=== PATIENT | male | born 1950 | race Caucasian/White ===

== ENCOUNTER 2021-02-05 15:01 | Inpatient (IN) | payer MEDICARE, MEDICAID, SELFPAY ==
[2021-02-05] VITALS (70 sets, daily range): BP systolic 83–143; BP diastolic 30–84; PULSE 48–108; RESP 10–32; TEMP 36.4–36.6; O2SAT 87–100; BMI 44.1
--- NOTE | 2021-02-05 15:47 | XRR_ITS ---
PROCEDURE INFORMATION: Exam: XR Chest Exam date and time: 02/05/2021 3:53 PM Age: 71 years old Clinical indication: Shortness of breath; Additional info: SOB TECHNIQUE: Imaging protocol: XR of the chest Views: 1 view. Total images: 1 COMPARISON: No relevant prior studies available. FINDINGS: Lungs: Minimal discoid atelectasis right lung base. Pleural spaces: Small right pleural effusion. Heart/Mediastinum: Unremarkable. No cardiomegaly. Bones/joints: Unremarkable. Soft tissues: Heavy body habitus. XR/XR chest 1V portable [id number] IMPRESSION: 1. Small right pleural effusion. 2. Minimal discoid atelectasis right lung base.
--- NOTE | 2021-02-05 15:47 | CTR_ITS ---
PROCEDURE INFORMATION: Exam: CT Abdomen And Pelvis Without Contrast Exam date and time: 02/05/2021 5:48 PM Age: 71 years old Clinical indication: Bloating; Patient HX: Rapid weight gain; Additional info: Abdominal distension TECHNIQUE: Imaging protocol: Computed tomography of the abdomen and pelvis without contrast. Total images: 281 Radiation optimization: All CT scans at this facility use at least one of these dose optimization techniques: automated exposure control; mA and/or kV adjustment per patient size (includes targeted exams where dose is matched to clinical indication); or iterative reconstruction. COMPARISON: No relevant prior studies available. RADIATION DOSE METRICS: Total DLP (mGy-cm): 1928.3 FINDINGS: Lungs: Rare bullous/bleb within the visualized lung bases. Calcified granulomas of antecedent disease. Pleural spaces: Small volume bilateral pleural effusions. Liver: Cirrhosis of the liver. No visible hepatic mass or cystic lesion. Gallbladder and bile ducts: Unremarkable. No calcified stones. No ductal dilation. Pancreas: Pancreas unremarkable. No visible pancreatic ductal ectasia. Spleen: Splenomegaly. Adrenal glands: Adrenal glands unremarkable. Kidneys and ureters: No visible hydronephrosis or perinephric fluid. Renal arteriosclerosis. Stomach and bowel: Diverticulosis coli without visible evidence for acute diverticulitis. Nonobstructive bowel pattern. No visible significant adynamic or reactive ileus. Appendix: The appendix is visualized and appears noninflamed. Intraperitoneal space: Small volume intraperitoneal ascites. No visible pneumoperitoneum. Vasculature: Coronary artery disease. Calcified mitral annulus. Evidence of portal venous hypertension. The abdominal aorta is nonaneurysmal. Moderate arterial sclerotic disease. Lymph nodes: Unremarkable. No enlarged lymph nodes. Urinary bladder: Urinary bladder unremarkable. Reproductive: Moderate prostate hypertrophy. Bones/joints: Old right rib fractures. No visible active or acute osseous abnormality. Degenerative disease of the spine with degenerative disc disease most advanced L3/4 and L4/L5 with vacuum disc phenomenon. Facet arthrosis. Mild scoliosis. Soft tissues: Anasarca. Bilateral small inguinal hernias containing fat only. Other findings: Marked obesity. CT/CT abdomen pelvis wo con [id number] IMPRESSION: 1. Cirrhosis of the liver. 2. Small volume intraperitoneal ascites. 3. Splenomegaly. 4. Evidence of portal venous hypertension. 5. Small bilateral pleural effusions. 6. Diverticulosis coli without visible evidence for acute diverticulitis. 7. Coronary artery disease. 8. Anasarca. 9. Other nonurgent, nonemergent, chronic, and age related findings as detailed in text above. Radiation Dose CTDIVOL = (mGy): DLP = 1928.3 (mGy-cm)
[2021-02-05] MEDS: sodium chloride 0.9% 1,000 ML 999 ML IV (16:04)
[2021-02-05 17:00] LABS: Basophils % 0.4 %; Eosinophils % 1.6 %; Hematocrit 24.4 % (42.0-52.0); Hemoglobin 7.2 g/dL (11.7-16.6); Mean Corpuscular HGB Conc 29.5 g/dL (30.0-36.0); Mean Corpuscular Hemoglobin 30.6 pg (28.0-34.0); Mean Corpuscular Volume 103.8 fL (80-94); Monocytes # 0.3 10^3/uL (0.2-0.9); Monocytes % 13.7 %; Neutrophils # 1.11 10^3/uL (1.8-7.7); Neutrophils % 44.5 %; Nucleated Red Blood Cells % 0 %; Red Blood Count 2.35 10^6/uL (4.1-5.3); Red Cell Distribution Width 19.2 % (12.1-15.1); White Blood Count 2.5 10^3/uL (4.0-10.0)
[2021-02-05 17:12] LABS: INR 1.38 (0.8-1.2)
[2021-02-05 17:14] LABS: Lactate (Lactic Acid level) 1.1 mmol/L (0.5-2.2)
[2021-02-05 17:19] LABS: Alanine Aminotransferase 8 U/L (0-41); Albumin Level 3.2 g/dL (3.5-5.2); Alkaline Phosphatase 36 IU/L (40-130); Anion Gap 19.1 (5-19); Aspartate Amino Transferase 18 U/L (0-40); Calcium 8.7 mg/dL (8.5-10.5); Carbon Dioxide 23 mmol/L (22-29); Chloride 106 mmol/L (98-107); Creatine Phosphokinase 130 U/L (39-308); Globulin 2.8 g/dL (1.3-4.6); Glucose 101 mg/dL (65-115); Lipase 134 U/L (13-60); NT Pro B Type Natriuretic Pept 1714 pg/mL (0-125); Potassium 6.1 mmol/L (3.5-5.1); Sodium 142 mmol/L (136-145); Total Bilirubin 0.5 mg/dL (0.15-1.2)
[2021-02-05 17:21] LABS: Platelet Count 34 10^3/cmm (130-400); Slide Review Slide Review Perform
[2021-02-05 17:30] LABS: Blood Urea Nitrogen 118 mg/dL (8-23); Osmolality Calculated 332 mOsm/kg (285-295)
--- NOTE | 2021-02-05 18:45 | XRR_ITS ---
PROCEDURE INFORMATION: Exam: XR Chest Exam date and time: 02/05/2021 6:47 PM Age: 71 years old Clinical indication: Device placement; Other: Central line; Additional info: Central line placement TECHNIQUE: Imaging protocol: XR of the chest Views: 1 view. Total images: 1 COMPARISON: CR XR chest 1V portable [id number] 02/05/2021 4:05 PM FINDINGS: Tubes, catheters and devices: Interval placement of a right internal jugular central venous catheter tip mid SVC level. Lungs: Suboptimal examination. Lung bases not imaged. Interval development of bibasilar ground-glass interstitial lung disease, right greater than left, which could reflect interstitial pneumonitis and/or interstitial edema. Pleural spaces: No visible pneumothorax. Heart/Mediastinum: Limited assessment. Bones/joints: Unremarkable as visualized. Other findings: Obesity. XR/XR chest 1V portable [id number] IMPRESSION: 1. Interval placement of a right internal jugular central venous catheter tip mid SVC level. No radiographic evidence of complicating features. 2. Limited diagnostic examination.
--- NOTE | 2021-02-05 20:12 | P.HP_ITS ---
Providers/Chief Complaint Primary Care Provider: Corey Lopez DO Chief Complaint: WEIGHT GAIN History of Present Illness Fabiano Young is a 71 year old male who came to the hospital for chief complaint of generalized weakness. Patient is stating that for last few weeks he has been feeling more tired and lethargic, he is endorsing previous history of EGD and colonoscopy and history of alcohol induced liver cirrhosis. He is not a re liable historian. There is no family at the bedside. Mr. Young is telling me that he was struggling to live independently, he is endorsing constipation, drinking alcohol on daily basis, he did not provide me much detail when asked about his alcohol intake however he told me that he did not drink today. He is endorsing constipation and inability to clean himself after using bathroom. He is denying chest pain, insomnia, PND, fever, sinus infection. Is also stating that for last few weeks he has been noticing dark-colored stools. Diagnosis in the ER revealed hypotension, anemia, melanotic stools, he was saturating well on room air was requiring vasopressor in the ER which improved his blood pressure from 70 systolic to 110 mmHg, Dr. Glasgow was notified and consulted however he was also notified about portal hypertension which we found on CT chest which is evident due to splenomegaly, ascites, liver contour, pancytopenia, bilateral pleural effusion, anasarca In the ER he was given 1 unit of PRBC along IV calcium Review of Systems Const: Reports: fatigue and malaise; Denies: fever(s) Eyes: Reports: yellow eyes; Denies: change in vision ENMT: Denies: throat pain Card: Reports: dyspnea on exertion; Denies: chest pain Resp: Reports: dyspnea GI: Reports: constipation, bloating and GI cramping; Denies: nausea, vomiting or diarrhea : Denies: flank pain Musc: Reports: muscle cramps Skin/Breast: Reports: lesions; Denies: rash Neuro: Reports: confusion Psych: Reports: sleeping more Endo: Denies: polyuria Amadou/Lymph: Denies: easy bruising All/Imm: Denies: urticaria PFSH Acute PFSH: Medical History (Updated 02/06/21 @ 00:56 by Nick Mcbride MD) Alcohol abuse Diabetes Portal hypertension Surgical History (Updated 02/06/21 @ 00:56 by Nick Mcbride MD) H/O esophagogastroduodenoscopy Hx of colonoscopy Family History (Updated 02/06/21 @ 00:56 by Nick Mcbride MD) Other Family history non-contributory Social History (Updated 02/06/21 @ 00:57 by Nick Mcbride MD) Smoking and tobacco status: heavy tobacco smoker cigarettes Packs smoked per day: 20 [ Other cigarette details: 1 pack/day ] Alcohol intake: current Substance/Drug Use: never Housing: House Vitals/I&O/Wt Last Vital Signs Temp 97.6 F 02/05/21 20:06 Pulse 50 L 02/05/21 20:06 Resp 14 02/05/21 20:06 BP 114/56 02/05/21 20:06 Pulse Ox 98 02/05/21 19:46 02/05/21 02/05/21 02/05/21 06:59 14:59 22:59 Intake Total 1010.300 / 1010.300 Balance 1010.300 / 1010.300 Weight last 48 hrs Weight 147.599 kg Physical Exam Narrative: EXAM NARRATIVE: Morbidly obese male who appears more than stated age He was able to tell me his date of , name of the hospital, no acute strokelike symptoms Generalized anasarca appearance S1, S2, no murmur appreciated Abdomen distended, central obesity nontender, bowel sounds present in all quadrants Lower extremity venous stasis dermatitis Multiple laceration of right leg He is able to lift his leg against gravity without any difficulty Acharya catheter draining concentrated urine Asterixis positive Saturating well on room air At the bedside blood transfusion and calcium gluconate Data : 02/05/21 16:30 02/05/21 16:30 A&P Assessment and plan (1) Hypovolemic shock: Status: Acute (2) Pancytopenia: Status: Acute (3) Melanotic stools: Status: Acute (4) JILLIAN (acute kidney injury): Status: Acute Additional A&P Information Hypovolemic shock with melanotic stool/upper GI bleed Generalized anasarca. Portal hypertension with splenomegaly and ascites Requiring vasopressors if needed I would add octreotide however current blood pressure is better systolic blood pressure 110 mmhg N.p.o. Protonix 40 IV twice daily He will need EGD in the morning Dr. Glasgow consulted and notified about portal hypertension he agreed for end oscopy Transfuse 1 unit For liver cirrhosis I will start ceftriaxone lactulose and rifaximin he does show signs of decompensated liver cirrhosis Pancytopenia This seems secondary to alcohol induced bone marrow suppression No active signs of infection Hold off on DVT prophylaxis Requiring blood transfusion Acute kidney injury due to hypotension Hyperkalemia 6.1, received calcium gluconate in the ER His baseline creatinine seems to be normal No hydronephrosis Generalized anasarca appearance Not sure whether at this point this is a presentation of hepatorenal syndrome Avoid nephrotoxic agents Acharya catheter draining concentrated urine N.p.o. DVT prophylaxis SCDs Full code Patient was very drowsy and has asterixis with hepatic encephalopathy kindly readdress his medical and surgical history along his medications in the morning once he is more awake Attestations Medical Necessity Statement*: Anticipating stay in the hospital cross more than 2 midnights for hypovolemic shock secondary to upper GI bleed currently requiring vasopressors Time Spent in Patient Care: (>than 50% of time spent in counselling and/or direct pt care on unit) . 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
[2021-02-05 20:20] LABS: Add Urine Microscopic? YES; Bilirubin Urine Neg (Negative); Blood Urine Trace (Negative); Glucose Urine UA Norm (Normal); Ketones Urine Negative (Negative); Leukocyte Esterase Urine Trace (Negative); Nitrate Urine Negative (Negative); Protein Urine Trace (Negative); Urine Appearance SL Hazy (CLEAR); Urine Color Yellow (Yellow); Urobilinogen Urine Norm (Negative); pH Urine 5 (5-7)
[2021-02-05 20:26] LABS: Add Urine Culture? Yes; Bacteria Urine 1+ /hpf; RBC Urine 0-4 /hpf (0-2); Squamous Epithelial Cell Urine 0-4 /hpf (0-5); WBC Urine 40-55 /hpf (0-5)
[2021-02-05] MEDS: pantoprazole 40 mg SDV IVP (22:13)
[2021-02-05 23:39] LABS: Ammonia 23 umol/L (16-60)
[2021-02-06] VITALS (106 sets, daily range): BP systolic 77–186; BP diastolic 36–158; PULSE 51–102; RESP 9–32; TEMP 36.5–37; O2SAT 86–100
--- NOTE | 2021-02-06 00:52 | W.ED.GIBLEED ---
HPI - GI Bleed General: Chief complaint: GI Bleed Stated complaint: WEIGHT GAIN Time Seen by Provider: 02/05/21 15:26 Source: patient Mode of arrival: ambulatory History of Present Illness: HPI Narrative: Patient is a poor historian and is unable to give me a thorough history. He presents to the ED with complaints of abdominal distension, bloating, and has generalized weakness. He states he has a history of GI bleed and prior EGD and possible gastric ulcer. He thinks that's what is going on again and he thinks that he needs an EGD. He denies bloody stools or melena stools, but thinks his abdominal distension is secondary to bleeding. Onset (ago): week(s) Severity: moderate Relieving factors: none Exacerbating factors: none Context: history of GI bleed Associated symptoms: Reports malaise; Denies abdominal pain, chills, easy bruising, epistaxis, fever(s), headache(s), nausea, other bleeding, poor appetite, rash, syncope, vomiting or weakness Treatments Prior to Arrival: none Review of Systems General: Reports: 10 or more systems reviewed and unremarkable except in HPI and below Const: Reports: malaise; Denies: fever(s) or chills ENMT: Denies: epistaxis Card: Denies: syncope GI: Denies: abdominal pain, nausea or vomiting Skin/Breast: Denies: rash Neuro: Denies: headache(s) Amadou/Lymph: Denies: easy bruising PFS ED PFSH: Medical History Alcohol abuse Diabetes Portal hypertension Surgical History H/O esophagogastroduodenoscopy Hx of colonoscopy Family History Other Family history non-contributory Social History Smoking and tobacco status: heavy tobacco smoker cigarettes Packs smoked per day: 20 [ Other cigarette details: 1 pack/day ] Alcohol intake: current Housing: House Physical Exam Const: COMMON NORMALS: no acute distress, average body habitus, patient oriented x3, no limitations, healthy appearing, alert and well nourished HENMT: COMMON NORMALS: normocephalic, atraumatic and moist oral mucous membranes HEAD & SCALP: normocephalic and atraumatic Neck/C-Spine: COMMON NORMALS: no meningeal signs and no JVD Resp: COMMON NORMALS: normal respiratory effort, No retractions, No use of accessory muscles, clear to auscultation bilaterally and percussion normal AUSCULTATION: clear to auscultation bilaterally PERCUSSION: percussion normal Cardio: COMMON NORMALS: no JVD, regular rhythm, S1 normal heart sound present, S2 normal heart sound present, No gallops present (Cardio), No clicks present (Cardio), No murmurs present (Cardio), No rub (Cardio) and Peripheral pulses 2+ throughout RATE: bradycardic RHYTHM: regular rhythm HEART SOUNDS: S1 normal heart sound present and S2 normal heart sound present PERIPHERAL PULSES: Peripheral pulses 2+ throughout GI: COMMON NORMALS: Soft to palpation, non-tender, No hepatosplenomegaly present, no masses and no bruits INSPECTION: Yes abdominal distension (mild) PALPATION: Yes Soft to palpation and Yes No hepatosplenomegaly present RECTAL EXAM: Yes visual inspection normal, Yes normal sphincter tone, Yes prostate normal, Yes heme positive stool and No hemorrhoids Extremity: COMMON NORMALS: normal to inspection, full ROM, capillary refill normal and no calf tenderness GENERAL: Yes edema Neuro: COMMON NORMALS: patient oriented x3 SENSORIUM/ORIENTATION: Yes alert MENINGEAL SIGNS: Yes no meningeal signs Skin: COMMON NORMALS: no rashes or lesions noted, no wounds, turgor normal, no jaundice, no petechiae and no mottling GENERAL SKIN EXAM: no rashes or lesions noted and turgor normal Procedures Central Line Placement Right IJ: Time Out Performed: Yes Patient Placed on Monitor/Pulse Ox: Yes MD Prep: mask, gown and gloves Central Line Prep: Chlorhexidine scrub Local Anesthetic: lidocaine 1% Amount of anesthesia used (mL): 3 Ultrasound Used for Placement: Yes Central Line Lumen Inserted: triple Post Procedure: sutured in place, good blood return, all ports aspirated, flushed, capped and sterile dressing applied Post Procedure X-Ray: tip of catheter in good position and no pneumothorax seen Patient Tolerated Procedure: well Complications: none Course Reevaluation(s): Reevaluation #1: Discussed his labs and imaging findings with him. Also discussed my discussion with the hospitalist and surgeon. Advised that he will benefit from inpatient admission for further evaluation and management. He voiced understanding and all questions answered. Time: 20:10 Consultations: Consultation #1: Discussed the patient with Dr. Glasgow, general surgeon. He kindly agreed to see the patient in the hospital as a consult. Hospitalist to admit the patient. Time: 19:57 Consultation #2: Discussed the patient with Dr. Mcbride, hospitalist and he kindly accepted the patient to his service. Time: 20:05 Vital Signs: Vital signs: Vital Signs Temperature 97.4 F L 02/13/21 17:34 Pulse Rate 84 02/13/21 17:34 Respiratory Rate 17 02/13/21 17:34 Blood Pressure 144/65 02/13/21 17:34 Pulse Oximetry 94 02/13/21 17:34 MDM - GI Bleed MDM Narrative: Medical decision making narrative: This 71 year old male presents to the ED with concerns of GI bleed. Evaluation in the ED revealed pancytopenia, heme positive stool, and he became hypotensive. He was also in acute renal failure, uremic encephalopathy, and is quite ill. He is transfused with PRBC because of anemia and hypotension. He also required pressors to maintain his BP. A central line was placed because he required fluids, pressors, blood. He is admitted to the ICU for further management. The surgeon, Dr Glasgow and he was evaluate the patient in the hospital. Medical Records: Attestation: I reviewed the patient's medical records. Lab Data: Attestation: I reviewed the patient's lab results. Labs: Lab Results 02/05/21 02/05/21 02/05/21 Range/Units 16:30 16:30 16:30 WBC 2.5 L (4.0-10.0) 10^3/ uL RBC 2.35 L (4.1-5.3) 10^6/u L Hgb 7.2 L (11.7-16.6) g/dL Hct 24.4 L (42.0-52.0) % MCV 103.8 H (80-94) fL MCH 30.6 (28.0-34.0) pg MCHC 29.5 L (30.0-36.0) g/dL RDW 19.2 H (12.1-15.1) % Plt Count 34 L (130-400) 10^3/c mm MPV 15.0 H (7.4-10.4) fL Neut % (Auto) 44.5 % Lymph % (Auto) 39.0 % [place] % (Auto) 13.7 % Eos % (Auto) 1.6 % Baso % (Auto) 0.4 % Neut # (Auto) 1.11 L (1.8-7.7) 10^3/u L Lymph # (Auto) 1.0 (0.8-4.8) 10^3/u L [place] # (Auto) 0.3 (0.2-0.9) 10^3/u L Eos # (Auto) 0.0 (0.0-0.8) 10^3/u L Baso # (Auto) 0.0 (0.0-0.1) 10^3/u L Nucleated RBC % (a uto) 0 % Nucleated RBCs # 0.0 /100WBC PT 17.50 H (12.1-14.9) SECO NDS INR 1.38 H (0.8-1.2) Sodium 142 (136-145) mmol/L Potassium 6.1 H (3.5-5.1) mmol/L Chloride 106 (98-107) mmol/L Carbon Dioxide 23 (22-29) mmol/L Anion Gap 19.1 H (5-19) BUN 118 H* (8-23) mg/dL Creatinine 5.7 H* (0.7-1.2) mg/dL GFR Calculation Not Reportable Glucose 101 (65-115) mg/dL Calculated Osmolal ity 332 H (285-295) mOsm/k g Lactate (0.5-2.2) mmol/L Calcium 8.7 (8.5-10.5) mg/dL Total Bilirubin 0.5 (0.15-1.2) mg/dL AST 18 (0-40) U/L ALT 8 (0-41) U/L Alkaline Phosphata se 36 L (40-130) IU/L Creatine Kinase 130 (39-308) U/L NT-Pro-B Natriuret Pep 1714 H (0-125) pg/mL Total Protein 6.0 L (6.6-8.7) g/dL Albumin 3.2 L (3.5-5.2) g/dL Globulin 2.8 (1.3-4.6) g/dL Lipase 134 H (13-60) U/L Urine Color (Yellow) Urine Appearance (CLEAR) Urine pH (5-7) Ur Specific Gravit y (1.005-1.030) Urine Protein (Negative) Urine Glucose (UA) (Normal) Urine Ketones (Negative) Urine Blood (Negative) Urine Nitrate (Negative) Urine Bilirubin (Negative) Urine Urobilinogen (Negative) mg/dL Ur Leukocyte Susanna ase (Negative) Urine RBC (0-2) /hpf Urine WBC (0-5) /hpf Ur Squamous Epith Cells (0-5) /hpf Amorphous Sediment Urine Bacteria (NONE) /hpf Hyaline Casts /lpf Blood Type Rho(D) Type Antibody Screen Crossmatch 02/05/21 02/05/21 02/05/21 Range/Units 16:30 16:30 20:13 WBC (4.0-10.0) 10^3/ uL RBC (4.1-5.3) 10^6/u L Hgb (11.7-16.6) g/dL Hct (42.0-52.0) % MCV (80-94) fL MCH (28.0-34.0) pg MCHC (30.0-36.0) g/dL RDW (12.1-15.1) % Plt Count (130-400) 10^3/c mm MPV (7.4-10.4) fL Neut % (Auto) % Lymph % (Auto) % [place] % (Auto) % Eos % (Auto) % Baso % (Auto) % Neut # (Auto) (1.8-7.7) 10^3/u L Lymph # (Auto) (0.8-4.8) 10^3/u L [place] # (Auto) (0.2-0.9) 10^3/u L Eos # (Auto) (0.0-0.8) 10^3/u L Baso # (Auto) (0.0-0.1) 10^3/u L Nucleated RBC % (a uto) % Nucleated RBCs # /100WBC PT (12.1-14.9) SECO NDS INR (0.8-1.2) Sodium (136-145) mmol/L Potassium (3.5-5.1) mmol/L Chloride (98-107) mmol/L Carbon Dioxide (22-29) mmol/L Anion Gap (5-19) BUN (8-23) mg/dL Creatinine (0.7-1.2) mg/dL GFR Calculation Glucose (65-115) mg/dL Calculated Osmolal ity (285-295) mOsm/k g Lactate 1.1 (0.5-2.2) mmol/L Calcium (8.5-10.5) mg/dL Total Bilirubin (0.15-1.2) mg/dL AST (0-40) U/L ALT (0-41) U/L Alkaline Phosphata se (40-130) IU/L Creatine Kinase (39-308) U/L NT-Pro-B Natriuret Pep (0-125) pg/mL Total Protein (6.6-8.7) g/dL Albumin (3.5-5.2) g/dL Globulin (1.3-4.6) g/dL Lipase (13-60) U/L Urine Color Yellow (Yellow) Urine Appearance Sl hazy (CLEAR) Urine pH 5 (5-7) Ur Specific Gravit y 1.020 (1.005-1.030) Urine Protein Trace (Negative) Urine Glucose (UA) Norm (Normal) Urine Ketones Negative (Negative) Urine Blood Trace H (Negative) Urine Nitrate Negative (Negative) Urine Bilirubin Neg (Negative) Urine Urobilinogen Norm (Negative) mg/dL Ur Leukocyte Susanna ase Trace H (Negative) Urine RBC 0-4 H (0-2) /hpf Urine WBC 40-55 H (0-5) /hpf Ur Squamous Epith Cells 0-4 H (0-5) /hpf Amorphous Sediment Not Reportable Urine Bacteria 1+ H (NONE) /hpf Hyaline Casts 5-10 H /lpf Blood Type B Positive Rho(D) Type Positive / 4+ Antibody Screen Negative Crossmatch See Detail Imaging Data^: CT Abd/Pel: Attestation: I personally reviewed and interpreted this imaging study as follows: Radiologist's impression: [address] [place] [address] CT Scan Report Signed Patient: Daisy Young #: [id number] : 1950Acct#:[id number] Age/Sex: 71 / MADM Date: 02/05/21 Loc: ERRoom/Bed: Attending Dr: Ordering Provider/Ordering MD: Bre Wilkerson MD, CHRISTOPHER Date of Service: 02/05/21 Procedure(s): CT abdomen pelvis [facility] [address] Accession Number(s): [id number] Report Number: [id number] PROCEDURE INFORMATION: Exam: CT Abdomen And Pelvis Without Contrast Exam date and time: 02/05/2021 5:48 PM Age: 71 years old Clinical indication: Bloating; Patient HX: Rapid weight gain; Additional info: Abdominal distension TECHNIQUE: Imaging protocol: Computed tomography of the abdomen and pelvis without contrast. Total images: 281 Radiation optimization: All CT scans at this facility use at least one of these dose optimization techniques: automated exposure control; mA and/or kV adjustment per patient size (includes targeted exams where dose is matched to clinical indication); or iterative reconstruction. COMPARISON: No relevant prior studies available. RADIATION DOSE METRICS: Total DLP (mGy-cm): 1928.3 FINDINGS: Lungs: Rare bullous/bleb within the visualized lung bases. Calcified granulomas of antecedent disease. Pleural spaces: Small volume bilateral pleural effusions. Liver: Cirrhosis of the liver. No visible hepatic mass or cystic lesion. Gallbladder and bile ducts: Unremarkable. No calcified stones. No ductal dilation. Pancreas: Pancreas unremarkable. No visible pancreatic ductal ectasia. Spleen: Splenomegaly. Adrenal glands: Adrenal glands unremarkable. Kidneys and ureters: No visible hydronephrosis or perinephric fluid. Renal arteriosclerosis. Stomach and bowel: Diverticulosis coli without visible evidence for acute diverticulitis. Nonobstructive bowel pattern. No visible significant adynamic or reactive ileus. Appendix: The appendix is visualized and appears noninflamed. Intraperitoneal space: Small volume intraperitoneal ascites. No visible pneumoperitoneum. Vasculature: Coronary artery disease. Calcified mitral annulus. Evidence of portal venous hypertension. The abdominal aorta is nonaneurysmal. Moderate arterial sclerotic disease. Lymph nodes: Unremarkable. No enlarged lymph nodes. Urinary bladder: Urinary bladder unremarkable. Reproductive: Moderate prostate hypertrophy. Bones/joints: Old right rib fractures. No visible active or acute osseous abnormality. Degenerative disease of the spine with degenerative disc disease most advanced L3/4 and L4/L5 with vacuum disc phenomenon. Facet arthrosis. Mild scoliosis. Soft tissues: Anasarca. Bilateral small inguinal hernias containing fat only. Other findings: Marked obesity. CT/CT abdomen pelvis wo con [id number] IMPRESSION: 1. Cirrhosis of the liver. 2. Small volume intraperitoneal ascites. 3. Splenomegaly. 4. Evidence of portal venous hypertension. 5. Small bilateral pleural effusions. 6. Diverticulosis coli without visible evidence for acute diverticulitis. 7. Coronary artery disease. 8. Anasarca. 9. Other nonurgent, nonemergent, chronic, and age related findings as detailed in text above. Radiation Dose CTDIVOL = (mGy): DLP = 1928.3 (mGy-cm) Dictated By:Khari Burnett Signed By:Nasim Burnett Date/Time:02/05/211826 DD/ 24 CXR: Attestation: I personally reviewed and interpreted this imaging study as follows: Radiologist's impression: [facility] [address] XRay Report Signed Patient: Daisy Young #: [id number] : 1950Acct#:[id number] Age/Sex: 71 / MADM Date: 02/05/21 Loc: ICURoom/Bed: [place] [address]: Nick Mcbride MD Ordering Provider/Ordering MD: Bre Wilkerson [place], [facility] [place] of Service: 02/05/21 Procedure(s): XR chest 1V portable [id number] Accession Number(s): [id number] Report Number: [id number] PROCEDURE INFORMATION: Exam: XR Chest Exam date and time: 02/05/2021 6:47 PM Age: 71 years old Clinical indication: Device placement; Other: Central line; Additional info: Central line placement TECHNIQUE: Imaging protocol: XR of the chest Views: 1 view. Total images: 1 COMPARISON: CR XR chest 1V portable [id number] 02/05/2021 4:05 PM FINDINGS: Tubes, catheters and devices: Interval placement of a right internal jugular central venous catheter tip mid SVC level. Lungs: Suboptimal examination. Lung bases not imaged. Interval development of bibasilar ground-glass interstitial lung disease, right greater than left, which could reflect interstitial pneumonitis and/or interstitial edema. Pleural spaces: No visible pneumothorax. Heart/Mediastinum: Limited assessment. Bones/joints: Unremarkable as visualized. Other findings: Obesity. XR/XR chest 1V portable [id number] IMPRESSION: 1. Interval placement of a right internal jugular central venous catheter tip mid SVC level. No radiographic evidence of complicating features. 2. Limited diagnostic examination. Dictated By:Khari Burnett Signed By:Khari BurnettSignjulienne Date/Time:02/05/21 6384 EKG Data^: EKG 1: Attestation: I personally reviewed and interpreted this EKG as follows: EKG interpretation date: 02/05/21 EKG interpretation time: 15:31 Prior EKG tracings: not available for review Interpretation: sinus bradycardia HR 49 bpm LAD No STEMI Critical Care Time Critical Care Time: Critical Care Time: Yes Total Critical Care Time: 60 Attestation: This case had a high probability of a clinically significant, sudden, or life threatening deterioration of this patient's condition which required my full and direct attention, intervention and personal management. Discharge Plan Discharge Patient Disposition: Admitted As Inpatient Admit Provider: Nick Mcbride Clinical Impression: Pancytopenia, JILLIAN (acute kidney injury), History of alcohol abuse, Melena Condition: Stable Discharge Diet: Cardiac Discharge Activity: Resume usual activity Coding Level of Care Code ED Appliance Adjuster for Jc Alaniz
[2021-02-06] MEDS: cefTRIAXone 1,000 MG in sodium chloride 0.9% (plus) 50 ML 100 MG IV (01:58)
[2021-02-06] MEDS: dextrose 5%-sod chloride 0.45% 1,000 ML 75 ML IV ×2 (01:58→15:47)
[2021-02-06 05:34] LABS: Basophils % 0.6 %; Eosinophils # 0.1 10^3/uL (0.0-0.8); Eosinophils % 1.3 %; Hematocrit 31.3 % (42.0-52.0); Hemoglobin 9.9 g/dL (11.7-16.6); Lymphocytes # 1.4 10^3/uL (0.8-4.8); Lymphocytes % 28.8 %; Mean Corpuscular HGB Conc 31.6 g/dL (30.0-36.0); Mean Corpuscular Hemoglobin 30.9 pg (28.0-34.0); Mean Corpuscular Volume 97.8 fL (80-94); Mean Platelet Volume 13.8 fL (7.4-10.4); Monocytes # 0.7 10^3/uL (0.2-0.9); Monocytes % 14.6 %; Neutrophils % 54.3 %; Nucleated Red Blood Cells % 0 %; Platelet Count 45 10^3/cmm (130-400); Red Cell Distribution Width 17.8 % (12.1-15.1); White Blood Count 4.8 10^3/uL (4.0-10.0)
[2021-02-06 05:57] LABS: Anion Gap 18.5 (5-19); Calcium 9.3 mg/dL (8.5-10.5); Carbon Dioxide 23 mmol/L (22-29); Chloride 106 mmol/L (98-107); Glucose 132 mg/dL (65-115); Osmolality Calculated 329 mOsm/kg (285-295); Potassium 5.5 mmol/L (3.5-5.1); Sodium 142 mmol/L (136-145)
[2021-02-06 05:58] LABS: Blood Urea Nitrogen 105 mg/dL (8-23)
[2021-02-06 06:06] LABS: Slide Review Slide Review Perform
--- NOTE | 2021-02-06 07:20 | PC.NURSE ---
This AM patient is resting in bed and is alert and oriented x 4 but rambles about unrelated topics. 2+ pitting edema is noted to lower extremities. Patient has no complaints of pain but stated he wants catheter out.
[2021-02-06] MEDS: lactulose oral liq 20 gm/30 mL UDC 30 GM PO ×2 (08:23→15:46)
[2021-02-06] MEDS: pantoprazole 40 mg SDV IV ×2 (08:23→22:01)
[2021-02-06 11:11] LABS: Hemoglobin 9.5 g/dL (11.7-16.6)
--- NOTE | 2021-02-06 12:10 | PC.CHAP ---
Pastoral Care Encounter/Spiritual Assessment Type of Contact [] Declined disabilities services officer visit [] Patient/Family/Request visit [] Outpatient visit [] Follow-up visit [] Physician referral [] Code/Alert [x] Routine visit [] Staff referral [] Actively dying [] Patient sleeping [] Family support [] [] Out of room [] Palliative care [] [] Receiving care in room [] Pre-surgical visit [] Trauma [] Long length of stay [x] ICU visit [] Other: Relational/Emotional Strength [] Patient feels connected with others/family/visitors/staff [] Distress [] Loneliness/isolation [] Abandonment Spirituality of Patient [] Person of Celina [] Attends Mandaen of their Celina [] Believes in Prayer [] Reads Bible or Pentecostalism materials [] There are Spiritual issues to be addressed Rehabilitation Aide/Scheduler Interventions [x] Prayer [x] Active listening [x] Non-anxious presence [x] Spiritual/emotional support [] Crisis/trauma care [] Spiritual counseling [] Bereavement support [] Provided bereavement packet [] Provided Bible/devotional materials [] Provided toy/stuffed animal, coloring book to patient or family member [] Provided Communion [] Anointing/[place] [] Salvation [x] Completed spiritual assessment [] Other: Impact on Illness or Injury [] Angry [] Fearful [] Anxious [] Often cries [] Exhaustion [] Unable to work [] Unable to attend tenriism [] Unable to walk/stand [] Unable to read [] Unable to drive [] Unable to eat/drink [] Unable to sleep [] Unable to be with family [] Patient intubated [] Other: Summary discuss celina with patient... patient note sure how he feels, or his issues.... Time spent with patient 10 min
[2021-02-06] MEDS: magnesium citrate Btl 296 mL PO (13:24)
--- NOTE | 2021-02-06 16:00 | PC.NURSE ---
Dr. Glasgow told this nurse to hold all bowel regimen medications at this time.
[2021-02-06 17:17] LABS: Hematocrit 31.9 % (42.0-52.0); Hemoglobin 9.8 g/dL (11.7-16.6)
--- NOTE | 2021-02-06 17:19 | XRR_ITS ---
PROCEDURE INFORMATION: Exam: XR Chest Exam date and time: 02/06/2021 5:24 PM Age: 71 years old Clinical indication: Device placement; Other: Central line; Additional info: Line placement TECHNIQUE: Imaging protocol: XR of the chest Views: 1 view. Total images: 1 COMPARISON: CR XR chest 1V portable [id number] 02/05/2021 7:28 PM FINDINGS: Tubes, catheters and devices: Right internal jugular central venous catheter tip mid superior vena cava level. EKG leads. Lungs: Subtle ground-glass interstitial lung disease right lung base which could reflect active interstitial pneumonitis and/or interstitial edema. Pleural spaces: Incomplete visualization of the left costal phrenic angle. No visible pneumothorax. Potential small right pleural effusion. Heart/Mediastinum: Cardiac structures and configuration stable. Bones/joints: Unremarkable. XR/XR chest 1V portable [id number] IMPRESSION: 1. Right internal jugular central venous catheter tip mid superior vena cava level. 2. Subtle ground-glass interstitial lung disease right lung base.
[2021-02-06 17:40] LABS: Alanine Aminotransferase 8 U/L (0-41); Albumin Level 3.4 g/dL (3.5-5.2); Alkaline Phosphatase 36 IU/L (40-130); Anion Gap 15.1 (5-19); Aspartate Amino Transferase 22 U/L (0-40); Calcium 9.4 mg/dL (8.5-10.5); Carbon Dioxide 24 mmol/L (22-29); Chloride 108 mmol/L (98-107); Globulin 3.3 g/dL (1.3-4.6); Glucose 149 mg/dL (65-115); Osmolality Calculated 330 mOsm/kg (285-295); Potassium 5.1 mmol/L (3.5-5.1); Sodium 142 mmol/L (136-145); Total Bilirubin 0.6 mg/dL (0.15-1.2); Total Protein 6.7 g/dL (6.6-8.7)
[2021-02-06 17:43] LABS: Blood Urea Nitrogen 106 mg/dL (8-23)
--- NOTE | 2021-02-06 18:18 | PC.NURSE ---
Patient attempted to stand up from chair and iv tubing was caught on bed and pulled both stitches out of central line. This nurse removed dressing and checked line. Central line was noted at 14 cm and was redressed. Dr. Chavez was notified. Stat chest xray was done to verify placement.
--- NOTE | 2021-02-06 18:27 | PC.NURSE ---
Patient has become more lethargic this afternoon but still remains alert and orientated x4. Dr. castro
--- NOTE | 2021-02-06 18:44 | PC.NURSE ---
Addendum entered by Amparo Osuna RN 02/06/21 19:08: Dr. Chavez is aware Original Note: Patient is resting in bed and is alert and oriented x 0.
--- NOTE | 2021-02-06 18:48 | CTR_ITS ---
PROCEDURE INFORMATION: Exam: CT Head Without Contrast Exam date and time: 02/06/2021 7:43 PM Age: 71 years old Clinical indication: Altered mental status/memory loss; Confusion or disorientation; Patient HX: AMS. Confusion. TECHNIQUE: Imaging protocol: Computed tomography of the head without contrast. Total images: 207 Radiation optimization: All CT scans at this facility use at least one of these dose optimization techniques: automated exposure control; mA and/or kV adjustment per patient size (includes targeted exams where dose is matched to clinical indication); or iterative reconstruction. COMPARISON: No relevant prior studies available. RADIATION DOSE METRICS: Total DLP (mGy-cm): 981.32 FINDINGS: Brain: No evidence of active or acute intracranial pathologic process, hemorrhage, or trauma. Mild small vessel ischemic disease with senile periventricular leukomalacia. No mass effect. No midline shift. Cerebral and cerebral atrophy not inconsistent with the patient's chronological age. Cerebral ventricles: No ventriculomegaly. Bones/joints: Unremarkable. No acute fracture. Paranasal sinuses: Visualized sinuses are unremarkable. No fluid levels. Mastoid air cells: Visualized mastoid air cells are well aerated. Soft tissues: Unremarkable. CT/CT head wo con* [id number] IMPRESSION: No evidence of active or acute intracranial pathologic process, hemorrhage, or trauma. Radiation Dose CTDIVOL = (mGy): DLP = 981.32 (mGy-cm)
[2021-02-06 19:32] LABS: Ammonia 23 umol/L (16-60)
--- NOTE | 2021-02-06 19:58 | P.CONIM_ITS ---
Providers/Reason For Consult Consulting Physican/Specialty*: Todd Chavez Reason for Consult*: GI bleed Attending Physician: Todd Chavez Primary Care Provider: Corey Lopez DO History of Present Illness History of Present Illness Patient appears a bit confused, information obtained from patient's chart. Fabiano Young is a 71 year old male who presented to the ER with generalized weakness. Patient apparently used to drink alcohol daily. In the ER a CT abdomen pelvis showed cirrhosis with portal hypertension and no other pathology. Patient is admitted to the ICU since he was hypotensive and received blood transfusion. Today he does not appear to be in distress, denies any nausea, vomiting, abdominal pain. He states that he has fresh blood in his stools. He is not sure when he had his last colonoscopy. Meds/Allergies Home Medications and Allergies Home Medications Medication Instructions Recorded Confirmed Last Taken Type acetaminophen [Tylenol Extra 500 mg PO QID PRN 02/06/21 02/06/21 Unknown History Strength] allopurinol 100 mg PO BID 02/06/21 02/06/21 Unknown History aspirin 325 mg PO DAILY 02/06/21 02/06/21 Unknown History atenolol-chlorthalidone 1 tab PO BID 02/06/21 02/06/21 Unknown History atorvastatin 80 mg PO DAILY 02/06/21 02/06/21 Unknown History colesevelam [WelChol] 3.75 g PO DAILY 02/06/21 02/06/21 Unknown History famotidine 20 mg PO BID 02/06/21 02/06/21 Unknown History fenofibrate nanocrystallized 145 mg PO DAILY 02/06/21 02/06/21 Unknown History furosemide 80 mg PO DAILY 02/06/21 02/06/21 Unknown History isosorbide mononitrate 30 mg PO DAILY 02/06/21 02/06/21 Unknown History lisinopril 10 mg PO DAILY 02/06/21 02/06/21 Unknown History nitroglycerin 0.4 mg SUBLINGUAL Q5MIN PRN 02/06/21 02/06/21 Unknown History pioglitazone 45 mg PO DAILY 02/06/21 02/06/21 Unknown History pregabalin 75 mg PO QID 02/06/21 02/06/21 Unknown History tamsulosin 0.4 mg PO DAILY 02/06/21 02/06/21 Unknown History Allergies Allergy/AdvReac Type Severity Reaction Status Date / Time No Known Allergies Allergy Verified 02/06/21 19:09 Current Medications Current Medications Generic Name Dose Route Start Last Admin Trade Name Homero PRN Reason Stop Dose Admin Norepinephrine Bitartrate 4 mg 254 mls @ 0 mls/hr 02/05/21 18:00 02/06/21 17:30 / Dextrose IV 0 mcg/min .Q0M FAISAL 0 mls/hr Titration Protocol Per Protocol Dextrose/Sodium Chloride 1,000 mls @ 75 mls/hr 02/06/21 01:15 02/06/21 15:47 Dextrose 5%-Sod Chloride 0.45% IV 75 mls/hr .[id number] FAISAL Administration Ceftriaxone Sodium 1,000 mg/ 50 mls @ 100 mls/hr 02/06/21 01:15 02/06/21 02:30 Sodium Chloride IV Infused Q24H FAISAL Infusion Protocol Lactulose 30 gm 02/06/21 09:00 02/06/21 15:46 Lactulose Oral Liq 20 Gm/30 Ml Udc PO 30 gm TID FAISAL Administration Magnesium Citrate 296 ml 02/06/21 12:00 02/06/21 13:24 Magnesium Citrate Btl 296 Ml PO 02/06/21 20:01 296 ml 1200,2000 FAISAL Administration Pantoprazole Sodium 40 mg 02/06/21 08:00 02/06/21 08:23 Pantoprazole 40 Mg Sdv IV 40 mg Q12H FAISAL Administration Rifaximin 550 mg 02/06/21 09:00 02/06/21 18:51 Rifaximin 550 Mg Tablet PO Not Given BID FAISAL Protocol PFSH Acute PFSH: Medical History Alcohol abuse Diabetes Portal hypertension Surgical History H/O esophagogastroduodenoscopy Hx of colonoscopy Family History Other Family history non-contributory Social History Smoking and tobacco status: heavy tobacco smoker cigarettes Packs smoked per day: 20 [ Other cigarette details: 1 pack/day ] Alcohol intake: current Substance/Drug Use: never Housing: House Vitals/I&O/Wt Last Vital Signs Temp 98.0 F 02/06/21 14:15 Pulse 60 02/06/21 18:00 Resp 11 L 02/06/21 17:00 BP 110/69 02/06/21 18:00 Pulse Ox 96 02/06/21 18:00 02/06/21 02/06/21 02/06/21 06:59 14:59 22:59 Intake Total 359.420 / 1878.145 54.51 / 3763.099 6262.873 / 1073.383 Output Total 2500 / 2500 950 / 1650 700 / 1650 Balance -2140.580 / -621.855 -895.49 / -576.617 318.873 / -576.617 Weight last 48 hrs Weight 325 lb 6.4 oz Physical Exam Narrative: EXAM NARRATIVE: HEENT: Normocephalic Eye: Sclera /conjunctiva normal Abdomen: Soft to palpation Neurological: Oriented to place person and time Skin: Intact, no lesions appreciated on gross exam Urinary Catheter Management^: Acharya: Cath Placed During This Visit: yes Reason for Continuing Indwelling Catheter: Accurate Measurement of Urinary Output in Critically Ill Patients Urinary Catheter Date of Insertion: 02/05/21 Urinary Catheter Time of Insertion: 22:31 A&P Assessment and plan (1) Melanotic stools: 71-year-old male with a history of alcohol consumption in the past who now presents with confusion. CT abdomen and pelvis showed acute kidney injury, elevated BUN and a hemoglobin of 7.2. Initially had planned for EGD and colonoscopy but patient has been borderline hypotensive requiring intermittent pressors. We will therefore just consider the EGD tomorrow under MAC. Continue lactulose for hepatic encephalopathy N.p.o. 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
--- NOTE | 2021-02-06 20:49 | P.PN_ITS ---
Subjective Subjective: Interval history: This morning lethargic/confused, later on awake, alert, oriented x3, going off on tangents, but provides good amount of history. Denies abdominal pain. Denies being dizzy/lightheaded. Vitals/I&O/Wt Last Vital Signs Temp 98.0 F 02/06/21 14:15 Pulse 59 L 02/06/21 20:10 Resp 16 02/06/21 20:10 BP 110/69 02/06/21 18:00 Pulse Ox 97 02/06/21 20:10 02/06/21 02/06/21 02/06/21 06:59 14:59 22:59 Intake Total 359.420 / 1878.145 54.51 / 54.51 1018.873 / 1073.383 Output Total 2500 / 2500 950 / 950 700 / 1650 Balance -2140.580 / -621.855 -895.49 / -895.49 318.873 / -576.617 Weight last 48 hrs Weight 147.599 kg Physical Exam Const: COMMON NORMALS: no acute distress and patient oriented x3 NUTRITIONAL APPEARANCE: obese OTHER: Lethargic during the morning. Alert du ring my visit. Later again lethargic. HENMT: COMMON NORMALS: oropharynx normal Neck/C-Spine: COMMON NORMALS: no JVD Resp: COMMON NORMALS: normal respiratory effort and clear to auscultation bilaterally AUSCULTATION: clear to auscultation bilaterally Cardio: COMMON NORMALS: no JVD, regular rhythm, S1 normal heart sound present, S2 normal heart sound present and No murmurs present (Cardio) RHYTHM: regular rhythm HEART SOUNDS: S1 normal heart sound present and S2 normal heart sound present GI: COMMON NORMALS: Normal to inspection, nondistended, normoactive bowel sounds present, Soft to palpation and non-tender PALPATION: Yes Soft to palpation Extremity: COMMON NORMALS: no joint enlargement and no pedal edema Neuro: COMMON NORMALS: patient oriented x3 and moves all extremities Skin: COMMON NORMALS: no rashes or lesions noted GENERAL SKIN EXAM: no rashes or lesions noted Urinary Catheter Management^: Acharya: Cath Placed During This Visit: yes Reason for Continuing Indwelling Catheter: Accurate Measurement of Urinary Output in Critically Ill Patients Urinary Catheter Date of Insertion: 02/05/21 Urinary Catheter Time of Insertion: 22:31 Data : 02/06/21 17:10 02/06/21 17:10 A&P Assessment and plan (1) Acute encephalopathy: Confused this morning, awake, alert, with fairly good insight, able to provide some other history during my visit. Subsequently again lethargic during the day. Encephalopathy possibly multifactorial. Requesting for ammonia repeat given a pparent cirrhosis. GI bleed. History of alcohol intake. Possible withdrawal considered, although for now would hold off on benzodiazepines. Also requested ABG to assess for hypercapnia given obesity. Discussed with nursing staff in case of hypercapnia may require BiPAP support. Hold Lyrica at this time due to renal failure. Requested CT head. Continue supportive care in the ICU. Status: Acute (2) Hypovolemic shock: Continue IV fluid rehydration. Monitor for fluid overload. Pressor support to maintain blood pressure over 65 mmHg. During fall central line was pulled on. Repeat chest x-ray requested. Status: Acute (3) Pancytopenia: Improving. Monitor. Status: Acute (4) Melanotic stools: Appreciate surgery assessment. Monitor hemoglobin. Status: Acute (5) JILLIAN (acute kidney injury): Improving. Monitor renal function, I&O. Fluid challenge. Maintain blood pressures. Hold lisinopril. Hold diuretic. Status: Acute Attestations Medical Necessity Statement*: Continue admission for assessment management of acute encephalopathy, acute anemia, hypotension, kidney injury, possible medication adverse effect, in setting of alcohol use, pancytopenia, morbid obesity. Coding Level of Care Code Acute Private Advisor for [facility] Diagnoses Acute encephalopathy G93.40 Hypovolemic shock R57.1 Pancytopenia D61.818 Melanotic stools K92.1 JILLIAN (acute kidney injury) N17.9
[2021-02-06 21:45] LABS: ABG PCO2 44.4 mmHg (35-45); ABG PH Result 7.36 (7.35-7.45)
[2021-02-06 21:46] LABS: Base Excess ABG -0.9 mmol/L (-2.0-2.0); Blood Gas Allen Test POS; Blood Gas Operator Identificat JB; HCO3 ABG 24.8 mmol/L (22-26); Oxygen Saturation ABG 91.9; PO2 ABG 62.4 mmHg (80.0-100.0); Potassium Level - ABG 5.1 mmol/L (3.5-5.0)
[2021-02-06 21:47] LABS: Alveolar-Arterial Oxygen Gradi 31.1 mmHg (5-10); Arterial Blood Gas Hematocrit 35.7 % (42-52); Blood Gas Drawn By GLC; Blood Gas Sample Type ARTERIAL; Oxygen Device ROOM AIR
[2021-02-06 21:48] LABS: Carboxyhemoglobin 1.8 %THgb (0.4-20.1); HGB O2 Sat 89.5 % (95-100); Ionized Calcium Level - ABG 1.3 mmol/L (1.1-1.4); Methemoglobin 0.8 % (0.4-1.5); Total Hemoglobin 11.6 g/dL (14-18)
[2021-02-07] VITALS (69 sets, daily range): BP systolic 92–160; BP diastolic 34–95; PULSE 55–95; RESP 11–39; TEMP 36.4–37; O2SAT 92–100
[2021-02-07] MEDS: cefTRIAXone 1,000 MG in sodium chloride 0.9% (plus) 50 ML 100 MG IV (01:09)
[2021-02-07 04:43] LABS: Basophils % 0.6 %; Eosinophils % 0.6 %; Hematocrit 29.8 % (42.0-52.0); Hemoglobin 9.4 g/dL (11.7-16.6); Lymphocytes # 0.9 10^3/uL (0.8-4.8); Mean Corpuscular HGB Conc 31.5 g/dL (30.0-36.0); Mean Corpuscular Hemoglobin 31.2 pg (28.0-34.0); Mean Platelet Volume 14.4 fL (7.4-10.4); Monocytes # 0.5 10^3/uL (0.2-0.9); Monocytes % 15.3 %; Neutrophils # 1.91 10^3/uL (1.8-7.7); Neutrophils % 57.2 %; Nucleated Red Blood Cells % 0 %; Platelet Count 35 10^3/cmm (130-400); Red Blood Count 3.01 10^6/uL (4.1-5.3); Red Cell Distribution Width 18.8 % (12.1-15.1); White Blood Count 3.3 10^3/uL (4.0-10.0)
[2021-02-07 04:56] LABS: Slide Review Slide Review Perform
[2021-02-07 05:02] LABS: Ammonia 18 umol/L (16-60)
[2021-02-07 05:03] LABS: Alanine Aminotransferase 9 U/L (0-41); Albumin Level 3.4 g/dL (3.5-5.2); Alkaline Phosphatase 36 IU/L (40-130); Aspartate Amino Transferase 21 U/L (0-40); Calcium 9.1 mg/dL (8.5-10.5); Carbon Dioxide 25 mmol/L (22-29); Chloride 111 mmol/L (98-107); Globulin 3.2 g/dL (1.3-4.6); Glucose 118 mg/dL (65-115); Osmolality Calculated 332 mOsm/kg (285-295); Sodium 146 mmol/L (136-145); Total Bilirubin 0.5 mg/dL (0.15-1.2); Total Protein 6.6 g/dL (6.6-8.7)
[2021-02-07 05:08] LABS: Blood Urea Nitrogen 94 mg/dL (8-23)
--- NOTE | 2021-02-07 09:07 | P.PN_ITS ---
Subjective Subjective: Interval history: This morning he is confused, demanding for SED to be taken off immediately. Feels that it is squeezing his leg. Also wants right IJ central line taken out, states does not want to choke on it . Discussed with him the purpose of both, although I am not sure that he was listening. Asks also about his Acharya catheter, asking how was it connected , discussed with him the purpose, and that it is draining into a bag, he again asks but how is it connected . Discussed with him regarding hypotension and shock, he was requiring monitoring in the intensive care unit. Discussed regarding GI bleeding. Again not sure that he was listening. He appeared to disregard what was said, stating he was in shock because he was not eating. He seems to remember the the year is 2020 and that he is at [facility]. However, asking him if he remembers why he is here and how he ended up here, states that he felt he was coming here to have arrangements made to go to a different place to live. Discussed with him again regarding underlying conditions. He asked whether his sister had asked for him to be in the hospital. States that he needs to be in the [facility], so is in the right place, but that there is an empty room trying to come in . Asking him if he has been having any trouble with his memory recently, firmly states no. Currently denies pain or discomfort. Denies chest or abdominal pain. Vitals/I&O/Wt Last Vital Signs Temp 98.6 F 02/07/21 01:00 Pulse 88 02/07/21 08:15 Resp 23 H 02/07/21 08:15 BP 124/79 02/07/21 08:15 Pulse Ox 96 02/07/21 08:15 02/06/21 02/07/21 02/07/21 22:59 06:59 14:59 Intake Total 1018.873 / 1073.383 50 / 1123.383 Output Total 700 / 1650 1450 / 3100 Balance 318.873 / -576.617 -1400 / -1976.617 Weight last 48 hrs Weight 144.741 kg Weight 147.599 kg Physical Exam Const: COMMON NORMALS: no acute distress NUTRITIONAL APPEARANCE: obese ORIENTATION/CONSCIOUSNESS: Yes awake and Yes confused HENMT: COMMON NORMALS: oropharynx normal Neck/C-Spine: COMMON NORMALS: no JVD Resp: COMMON NORMALS: normal respiratory effort and clear to auscultation bilaterally AUSCULTATION: clear to auscultation bilaterally Cardio: COMMON NORMALS: no JVD, regular rhythm, S1 normal heart sound present, S2 normal heart sound present and No murmurs present (Cardio) RHYTHM: regular rhythm HEART SOUNDS: S1 normal heart sound present and S2 normal heart sound present GI: COMMON NORMALS: Normal to inspection, nondistended, normoactive bowel sounds present, Soft to palpation and non-tender PALPATION: Yes Soft to palpation Extremity: COMMON NORMALS: no joint enlargement and no pedal edema Neuro: COMMON NORMALS: moves all extremities Skin: COMMON NORMALS: no rashes or lesions noted GENERAL SKIN EXAM: no rashes or lesions noted Urinary Catheter Management^: Acharya: Cath Placed During This Visit: yes Reason for Continuing Indwelling Catheter: Accurate Measurement of Urinary Output in Critically Ill Patients Urinary Catheter Date of Insertion: 02/05/21 Urinary Catheter Time of Insertion: 22:31 Data : 02/07/21 04:14 02/07/21 04:14 Micro: Microbiology 02/05/21 20:13 Urine Culture - Final Urine,Clean Catch A&P Assessment and plan (1) Acute encephalopathy: This morning he is awake. Overnight episodes of decreased responsiveness, altered alertness, mentation. He appears to be oriented x3, however, has very poor insight into his condition at this time. Appears he may be developing alcohol withdrawal. We will add monitoring by [facility] protocol. Thiamine, folic acid. Multivitamin. Continue monitoring in ICU. Plan was to take out central line, however, it appears he had taken out his IV, currently does not have other access. If other access can be obtained, central line can be taken out. If starts being more confused, take out the Acharya catheter. Repeated ammonia yesterday and this morning, does not appear elevated. He is not significantly hypercapnic. No signs of acute infection or sepsis. He is not severely neutropenic. Hold Lyrica at this time due to renal failure. Unremarkable CT head. Continue supportive care in the ICU. Could not reach his sister for update. Left a message. Status: Acute (2) Hypovolemic shock: GI bleeding, acute anemia. Hemorrhagic shock on presentation. Yesterday hypotensive again, poor, weaned off Levophed currently. Refused echocardiography this morning. Is also refusing SCDs. Acharya in place for accurate I&O, but may have to remove if getting more confused. Continue IV fluid rehydration. Monitor for fluid overload. Pressor support to maintain blood pressure over 65 mmHg. During fall central line was pulled on. Repeat chest x-ray requested. Status: Acute (3) Pancytopenia: Monitor. Platelet count down somewhat today to 35,000. Monitor platelet and hemoglobin levels. Absolute neutrophil count 1900 Status: Acute (4) Melanotic stools: Monitor condition, if remains stable, plan has been for additional discomfort assessment. Status: Acute (5) JILLIAN (acute kidney injury): Improving. Monitor renal function, I&O. Fluid challenge. Maintain blood pressures. Hold lisinopril. Hold diuretic. Status: Acute Attestations Medical Necessity Statement*: Continue admission for assessment management of GI bleeding, acute anemia, monitoring after resolution of shock, risk of rebleeding with pancytopenia, thrombocytopenia, monitoring for continued improvement of acute kidney injury in a gentleman with intermittent confusion. Coding Level of Care Code Acute Bed Control Specialist for [facility] Fwd Exam Comprehensive Diagnoses Acute encephalopathy G93.40 Hypovolemic shock R57.1 Pancytopenia D61.818 Melanotic stools K92.1 JILLIAN (acute kidney injury) N17.9
--- NOTE | 2021-02-07 10:48 | PC.NURSE ---
Addendum entered by Amparo Osuna RN 02/07/21 11:00: Patient is alert and oriented x 4 and is sitting up in chair. Original Note: Patient is removing SCD's, blood pressure cuff, oxygen sensor, and telemetry wires. Nurse educated patient on importance of monitoring vitals while in ICU. Patient also refused morning medications and 0915 medications. He stated that he is going home today. aware and going to talk to family.
[2021-02-07] MEDS: dextrose 5%-sod chloride 0.45% 1,000 ML 75 ML IV (13:33)
--- NOTE | 2021-02-07 15:04 | ANES.PREANE2 ---
Pre-Anesthetic Assessment Pre-Anesthetic Assessment: Height/Weight: Height 1.83 m Weight 144.741 kg Temp Pulse Resp BP Pulse Ox 97.6 F 81 20 H 125/83 96 02/07/21 13:00 02/07/21 14:15 02/07/21 13:45 02/07/21 14:15 02/07/21 14:15 Preop Diagnosis: pud Proposed Procedure: Operation Date: 02/07/21 11:00 Proposed Procedures p EGD(Not Applicable) - Davion Glasgow MD s Colonoscopy(Not Applicable) - Davion Glasgow MD Familial anesthetic complications: none Was Beta Chauncey taken within 24 hours: N/A Was Clonidine taken within 24 hours: N/A Last intake: > 8 hrs Social: Social History: No alcohol and No tobacco Comment: former alchoholic Exam: Pre-Anes Outpt Exam: alert, oriented x 3, clear to auscultation bilaterally and regular rate & rhythm Airway: Cervical ROM: WNL MP: 4 Dentition: Other ( bad teeth ) CV/HEM: CV/HEM: HTN : Comments: skylar Metabolic: Metabolic: Morbid obesity Anesthetic Plan: ASA status: 3 Anesthesia: MAC Risk of > 500 ml blood loss (7ml/kg in children): No Meds/Allergies Current Medications: Current Medications Generic Name Dose Route Start Last Admin Trade Name Freq PRN Reason Stop Dose Admin Norepinephrine Bit artrate 4 mg 254 mls @ 0 mls/h r 02/05/21 18:00 02/07/21 13:41 / Dextrose IV Infused .Q0M FAISAL Titration Protocol Per Protocol Dextrose/Sodium Ch loride 1,000 mls @ 75 ml s/hr 02/06/21 01:15 02/07/21 13:33 Dextrose 5%-Sod Chloride 0.45% IV 75 mls/hr .[id number] FAISAL Administration Ceftriaxone Sodium 1,000 mg/ 50 mls @ 100 mls/ hr 02/06/21 01:15 02/07/21 01:39 Sodium Chloride IV Infused Q24H FAISAL Infusion Protocol Lactulose 30 gm 02/06/21 09:00 02/07/21 09:17 Lactulose Oral L iq 20 Gm/30 Ml Udc PO Not Given TID FAISAL Multivitamins Ther apeutic 1 tab 02/07/21 09:15 02/07/21 12:27 Multivitamin The rapeutic Tablet PO Not Given DAILY [facility] Nicotine 1 patch 02/07/21 11:35 02/07/21 13:13 Nicotine 21 Mg P atch TRANSDERMA Not Given DAILY [facility] Pantoprazole Sodiu m 40 mg 02/06/21 08:00 02/07/21 09:18 Pantoprazole 40 Mg Sdv IV Not Given Q12H [facility] Rifaximin 550 mg 02/06/21 09:00 02/07/21 09:17 Rifaximin 550 Mg Tablet PO Not Given BID [facility] Protocol Thiamine Mononitra te 100 mg 02/07/21 09:15 02/07/21 12:28 Thiamine 100 Mg Tablet PO Not Given DAILY [facility] PFSH Anesthesia PFSH: Medical History Alcohol abuse Diabetes Portal hypertension Surgical History H/O esophagogastroduodenoscopy Hx of colonoscopy Family History Other Family history non-contributory Social History Smoking and tobacco status: heavy tobacco smoker cigarettes Packs smoked per day: 20 [ Other cigarette details: 1 pack/day ] Alcohol intake: current Substance/Drug Use: never Housing: [place] Data Anesthesia CBC & Chem 7: 02/07/21 04:14 02/07/21 04:14 Other Labs: Laboratory Results - last 48 hr 02/05/21 02/05/21 02/05/21 16:30 16:30 16:30 WBC 2.5 L RBC 2.35 L Hgb 7.2 L Hct 24.4 L MCV 103.8 H MCH 30.6 MCHC 29.5 L RDW 19.2 H Plt Count 34 L MPV 15.0 H Neut % (Auto) 44.5 Lymph % (Auto) 39.0 [place] % (Auto) 13.7 Eos % (Auto) 1.6 Baso % (Auto) 0.4 Neut # (Auto) 1.11 L Lymph # (Auto) 1.0 [place] # (Auto) 0.3 Eos # (Auto) 0.0 Baso # (Auto) 0.0 Nucleated RBC % (auto) 0 Nucleated RBCs # 0.0 PT 17.50 H INR 1.38 H Specimen Type Sample Site ABG pH ABG pCO2 ABG pO2 ABG HCO3 ABG O2 Saturation ABG Base Excess Gomez Test A-a O2 Gradient Hematocrit Hgb O2 Saturation Carboxyhemoglobin Methemoglobin Total Hemoglobin Ionized Calcium O2 Delivery Device Specimen Drawn By Shipping/Receiving Manager ID Sodium 142 Potassium 6.1 H Chloride 106 Carbon Dioxide 23 Anion Gap 19.1 H BUN 118 H* Creatinine 5.7 H* GFR Calculation Not Reportable Glucose 101 Calculated Osmolality 332 H Lactate Calcium 8.7 Total Bilirubin 0.5 AST 18 ALT 8 Alkaline Phosphatase 36 L Ammonia Creatine Kinase 130 NT-Pro-B Natriuret Pep 1714 H Total Protein 6.0 L Albumin 3.2 L Globulin 2.8 Lipase 134 H Urine Color Urine Appearance Urine pH Ur Specific [place] Urine Protein Urine Glucose (UA) Urine Ketones Urine Blood Urine Nitrate Urine Bilirubin Urine Urobilinogen Ur Leukocyte Esterase Urine RBC Urine WBC Ur Squamous Epith Cells Amorphous Sediment Urine Bacteria Hyaline Casts Blood Type Rho(D) Type Antibody Screen Crossmatch 02/05/21 02/05/21 02/05/21 16:30 16:30 20:13 WBC RBC Hgb Hct MCV MCH MCHC RDW Plt Count MPV Neut % (Auto) Lymph % (Auto) [place] % (Auto) Eos % (Auto) Baso % (Auto) Neut # (Auto) Lymph # (Auto) [place] # (Auto) Eos # (Auto) Baso # (Auto) Nucleated RBC % (auto) Nucleated RBCs # PT INR Specimen Type Sample Site ABG pH ABG pCO2 ABG pO2 ABG HCO3 ABG O2 Saturation ABG Base Excess Gomez Test A-a O2 Gradient Hematocrit Hgb O2 Saturation Carboxyhemoglobin Methemoglobin Total Hemoglobin Ionized Calcium O2 Delivery Device Specimen Drawn By Shipping/Receiving Manager ID Sodium Potassium Chloride Carbon Dioxide Anion Gap BUN Creatinine GFR Calculation Glucose Calculated Osmolality Lactate 1.1 Calcium Total Bilirubin AST ALT Alkaline Phosphatase Ammonia Creatine Kinase NT-Pro-B Natriuret Pep Total Protein Albumin Globulin Lipase Urine Color Yellow Urine Appearance Sl hazy Urine pH 5 Ur Specific [place] 1.020 Urine Protein Trace Urine Glucose (UA) Norm Urine Ketones Negative Urine Blood Trace H Urine Nitrate Negative Urine Bilirubin Neg Urine Urobilinogen Norm Ur Leukocyte Esterase Trace H Urine RBC 0-4 H Urine WBC 40-55 H Ur Squamous Epith Cells 0-4 H Amorphous Sediment Not Reportable Urine Bacteria 1+ H Hyaline Casts 5-10 H Blood Type B Positive Rho(D) Type Positive / 4+ Antibody Screen Negative Crossmatch See Detail 02/05/21 02/06/21 02/06/21 23:17 05:07 05:07 WBC 4.8 RBC 3.20 L Hgb 9.9 L D Hct 31.3 L MCV 97.8 H D MCH 30.9 MCHC 31.6 D RDW 17.8 H Plt Count 45 L MPV 13.8 H Neut % (Auto) 54.3 Lymph % (Auto) 28.8 [place] % (Auto) 14.6 Eos % (Auto) 1.3 Baso % (Auto) 0.6 Neut # (Auto) 2.60 Lymph # (Auto) 1.4 [place] # (Auto) 0.7 Eos # (Auto) 0.1 Baso # (Auto) 0.0 Nucleated RBC % (auto) 0 Nucleated RBCs # 0.0 PT INR Specimen Type Sample Site ABG pH ABG pCO2 ABG pO2 ABG HCO3 ABG O2 Saturation ABG Base Excess Gomez Test A-a O2 Gradient Hematocrit Hgb O2 Saturation Carboxyhemoglobin Methemoglobin Total Hemoglobin Ionized Calcium O2 Delivery Device Specimen Drawn By Shipping/Receiving Manager ID Sodium 142 Potassium 5.5 H Chloride 106 Carbon Dioxide 23 Anion Gap 18.5 BUN 105 H* Creatinine 4.5 H GFR Calculation Not Reportable Glucose 132 H Calculated Osmolality 329 H Lactate Calcium 9.3 Total Bilirubin AST ALT Alkaline Phosphatase Ammonia 23 Creatine Kinase NT-Pro-B Natriuret Pep Total Protein Albumin Globulin Lipase Urine Color Urine Appearance Urine pH Ur Specific [place] Urine Protein Urine Glucose (UA) Urine Ketones Urine Blood Urine Nitrate Urine Bilirubin Urine Urobilinogen Ur Leukocyte Esterase Urine RBC Urine WBC Ur Squamous Epith Cells Amorphous Sediment Urine Bacteria Hyaline Casts Blood Type Rho(D) Type Antibody Screen Crossmatch 02/06/21 02/06/21 02/06/21 11:00 17:10 17:10 WBC RBC Hgb 9.5 L 9.8 L Hct 31.9 L MCV MCH MCHC RDW Plt Count MPV Neut % (Auto) Lymph % (Auto) [place] % (Auto) Eos % (Auto) Baso % (Auto) Neut # (Auto) Lymph # (Auto) [place] # (Auto) Eos # (Auto) Baso # (Auto) Nucleated RBC % (auto) Nucleated RBCs # PT INR Specimen Type Sample Site ABG pH ABG pCO2 ABG pO2 ABG HCO3 ABG O2 Saturation ABG Base Excess Gomez Test A-a O2 Gradient Hematocrit Hgb O2 Saturation Carboxyhemoglobin Methemoglobin Total Hemoglobin Ionized Calcium O2 Delivery Device Specimen Drawn By Shipping/Receiving Manager ID Sodium 142 Potassium 5.1 Chloride 108 H Carbon Dioxide 24 Anion Gap 15.1 BUN 106 H* Creatinine 3.7 H GFR Calculation Not Reportable Glucose 149 H Calculated Osmolality 330 H Lactate Calcium 9.4 Total Bilirubin 0.6 AST 22 ALT 8 Alkaline Phosphatase 36 L Ammonia Creatine Kinase NT-Pro-B Natriuret Pep Total Protein 6.7 Albumin 3.4 L Globulin 3.3 Lipase Urine Color Urine Appearance Urine pH Ur Specific [place] Urine Protein Urine Glucose (UA) Urine Ketones Urine Blood Urine Nitrate Urine Bilirubin Urine Urobilinogen Ur Leukocyte Esterase Urine RBC Urine WBC Ur Squamous Epith Cells Amorphous Sediment Urine Bacteria Hyaline Casts Blood Type Rho(D) Type Antibody Screen Crossmatch 02/06/21 02/06/21 02/07/21 18:00 19:00 04:14 WBC 3.3 L RBC 3.01 L Hgb 9.4 L Hct 29.8 L MCV 99.0 H MCH 31.2 MCHC 31.5 RDW 18.8 H Plt Count 35 L MPV 14.4 H Neut % (Auto) 57.2 Lymph % (Auto) 26.0 [place] % (Auto) 15.3 Eos % (Auto) 0.6 Baso % (Auto) 0.6 Neut # (Auto) 1.91 Lymph # (Auto) 0.9 [place] # (Auto) 0.5 Eos # (Auto) 0.0 Baso # (Auto) 0.0 Nucleated RBC % (auto) 0 Nucleated RBCs # 0.0 PT INR Specimen Type Arterial Sample Site Radial, left ABG pH 7.36 ABG pCO2 44.4 ABG pO2 62.4 L ABG HCO3 24.8 ABG O2 Saturation 91.9 ABG Base Excess -0.9 Gomez Test Pos A-a O2 Gradient 31.1 H Hematocrit 35.7 L Hgb O2 Saturation 89.5 L Carboxyhemoglobin 1.8 Methemoglobin 0.8 Total Hemoglobin 11.6 L Ionized Calcium 1.3 O2 Delivery Device Room air Specimen Drawn By Glc Shipping/Receiving Manager ID Abdiel Sodium 147.0 H Potassium 5.1 H Chloride Carbon Dioxide Anion Gap BUN Creatinine GFR Calculation Glucose 142.0 H Calculated Osmolality Lactate Calcium Total Bilirubin AST ALT Alkaline Phosphatase Ammonia 23 Creatine Kinase NT-Pro-B Natriuret Pep Total Protein Albumin Globulin Lipase Urine Color Urine Appearance Urine pH Ur Specific [place] Urine Protein Urine Glucose (UA) Urine Ketones Urine Blood Urine Nitrate Urine Bilirubin Urine Urobilinogen Ur Leukocyte Esterase Urine RBC Urine WBC Ur Squamous Epith Cells Amorphous Sediment Urine Bacteria Hyaline Casts Blood Type Rho(D) Type Antibody Screen Crossmatch 02/07/21 02/07/21 04:14 04:14 WBC RBC Hgb Hct MCV MCH MCHC RDW Plt Count MPV Neut % (Auto) Lymph % (Auto) [place] % (Auto) Eos % (Auto) Baso % (Auto) Neut # (Auto) Lymph # (Auto) [place] # (Auto) Eos # (Auto) Baso # (Auto) Nucleated RBC % (auto) Nucleated RBCs # PT INR Specimen Type Sample Site ABG pH ABG pCO2 ABG pO2 ABG HCO3 ABG O2 Saturation ABG Base Excess [place] Test A-a O2 Gradient Hematocrit Hgb O2 Saturation Carboxyhemoglobin Methemoglobin Total Hemoglobin Ionized Calcium O2 Delivery Device Specimen Drawn By Shipping/Receiving Manager ID Sodium 146 H Potassium 5.0 Chloride 111 H Carbon Dioxide 25 Anion Gap 15.0 BUN 94 H* Creatinine 3.0 H GFR Calculation Not Reportable Glucose 118 H Calculated Osmolality 332 H Lactate Calcium 9.1 Total Bilirubin 0.5 AST 21 ALT 9 Alkaline Phosphatase 36 L Ammonia 18 Creatine Kinase NT-Pro-B Natriuret Pep Total Protein 6.6 Albumin 3.4 L Globulin 3.2 Lipase Urine Color Urine Appearance Urine pH Ur Specific [place] Urine Protein Urine Glucose (UA) Urine Ketones Urine Blood Urine Nitrate Urine Bilirubin Urine Urobilinogen Ur Leukocyte Esterase Urine RBC Urine WBC Ur Squamous Epith Cells Amorphous Sediment Urine Bacteria Hyaline Casts Blood Type Rho(D) Type Antibody Screen Crossmatch Micro: Microbiology 02/05/21 20:13 Urine Culture - Final Urine,Clean Catch Cardiac Studies: No Data to Display
[2021-02-07] MEDS: lactulose oral liq 20 gm/30 mL UDC 30 GM PO (17:22)
--- NOTE | 2021-02-07 17:32 | PC.RESP ---
Smoking Cessation information sent to patient.
--- NOTE | 2021-02-07 18:10 | PM.PN ---
Subjective Subjective: Interval history: Patient was scheduled for an EGD for upper GI bleed but is currently confused. He denies any abdominal pain and has not had any hematemesis or melena. His hemoglobin is stable at 9.4 Vitals/I&O/Wt Last Vital Signs Temp 97.6 F 02/07/21 13:00 Pulse 57 L 02/07/21 17:45 Resp 17 02/07/21 17:45 BP 133/56 02/07/21 17:45 Pulse Ox 96 02/07/21 14:15 02/07/21 02/07/21 02/07/21 06:59 14:59 22:59 Intake Total 1050 / 2123.383 0.582 / 0.582 Output Total 1450 / 3100 1575 / 2375 800 / 2375 Balance -400 / -976.617 -1574.418 / -2374.418 -800 / -2374.418 Weight last 48 hrs Weight 319 lb 1.6 oz Physical Exam Narrative: EXAM NARRATIVE: Abdomen: Soft Urinary Catheter Management^: Acharya: Cath Placed During This Visit: yes Reason for Continuing Indwelling Catheter: Accurate Measurement of Urinary Output in Critically Ill Patients Urinary Catheter Date of Insertion: 02/05/21 Urinary Catheter Time of Insertion: 22:31 Data : 02/07/21 04:14 02/07/21 04:14 Micro: Microbiology 02/05/21 20:13 Urine Culture - Final Urine,Clean Catch A&P Assessment and plan (1) Melanotic stools: 71-year-old male with a history of alcohol consumption in the past who now presents with confusion. Patient was scheduled for EGD today but he is now confused and refusing to have any procedure done. Psychiatry has been consulted. 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
--- NOTE | 2021-02-07 19:59 | PC.NURSE ---
AO x3, follows commands, 1 loose BM noted, no C/O at this time, abdomen slightly firm no pain or discomfort noted, supine 45 degrees call light within reach
[2021-02-07] MEDS: pantoprazole 40 mg SDV IV (20:56)
--- NOTE | 2021-02-07 22:38 | PC.NURSE ---
Patient refused Lactulose due to increased diarrhea. Offered PRN Ativan but the patient refused.
--- NOTE | 2021-02-07 22:47 | PC.NURSE ---
Order received from Dr. Mcbride for rectal tube due to multiple large loose runny stools
[2021-02-08] VITALS (35 sets, daily range): BP systolic 131–167; BP diastolic 42–97; PULSE 58–76; RESP 10–18; TEMP 36.1–36.9; O2SAT 90–99; BMI 43.4
[2021-02-08] MEDS: cefTRIAXone 1,000 MG in sodium chloride 0.9% (plus) 50 ML 100 MG IV (01:38)
[2021-02-08] MEDS: dextrose 5%-sod chloride 0.45% 1,000 ML 75 ML IV ×2 (01:45→15:02)
[2021-02-08 04:14] LABS: Basophils % 0.3 %; Eosinophils % 0.7 %; Hematocrit 29.2 % (42.0-52.0); Lymphocytes # 0.7 10^3/uL (0.8-4.8); Lymphocytes % 23.4 %; Mean Corpuscular HGB Conc 30.8 g/dL (30.0-36.0); Mean Corpuscular Hemoglobin 30.6 pg (28.0-34.0); Mean Corpuscular Volume 99.3 fL (80-94); Monocytes # 0.4 10^3/uL (0.2-0.9); Neutrophils # 1.72 10^3/uL (1.8-7.7); Neutrophils % 60.3 %; Nucleated Red Blood Cells % 0 %; Platelet Count 30 10^3/cmm (130-400); Red Blood Count 2.94 10^6/uL (4.1-5.3); Red Cell Distribution Width 18.8 % (12.1-15.1); White Blood Count 2.9 10^3/uL (4.0-10.0)
[2021-02-08 04:33] LABS: Alanine Aminotransferase 9 U/L (0-41); Albumin Level 3.4 g/dL (3.5-5.2); Alkaline Phosphatase 36 IU/L (40-130); Anion Gap 12.5 (5-19); Aspartate Amino Transferase 23 U/L (0-40); Blood Urea Nitrogen 70 mg/dL (8-23); Calcium 9.6 mg/dL (8.5-10.5); Carbon Dioxide 27 mmol/L (22-29); Chloride 111 mmol/L (98-107); Globulin 2.7 g/dL (1.3-4.6); Glucose 131 mg/dL (65-115); Osmolality Calculated 324 mOsm/kg (285-295); Potassium 4.5 mmol/L (3.5-5.1); Sodium 146 mmol/L (136-145); Total Bilirubin 0.6 mg/dL (0.15-1.2); Total Protein 6.1 g/dL (6.6-8.7)
[2021-02-08 04:49] LABS: Slide Review Slide Review Perform
[2021-02-08] MEDS: atorvastatin 40 mg Tablet 80 MG PO (08:45)
[2021-02-08] MEDS: multivitamin therapeutic Tablet 1 TAB PO (08:45)
[2021-02-08] MEDS: thiamine 100 mg Tablet PO (08:45)
[2021-02-08] MEDS: folic acid 1 mg Tablet PO (08:45)
[2021-02-08] MEDS: fenofibrate 145 mg Tablet PO (08:46)
[2021-02-08 09:11] LABS: LAB Peripheral Smear Sent for Review
[2021-02-08] MEDS: pantoprazole 40 mg SDV IV ×2 (09:16→20:24)
--- NOTE | 2021-02-08 10:31 | PM.PN ---
Subjective Subjective: Interval history: He denies any pain or discomfort at this time. Request that he would like to be discharging soon. He is oriented to being in [facility] and to year. When asked what brought him into the hospital states after thinking for some time that his hands were shaking and he was dropping his cigarettes. When asked what medically was going on, does not remember. Discussed with him again regarding anemia requiring transfusion on presentation, regarding pancytopenia, regarding hypotension requiring pressor support. He verbalizes understanding, and states I do not have to be in a place like this to treat that . I try to clarify what kind of place he means, he states an empty place, and pointing to distant wall in ICU so near to the water flowing . Discussed with him concerns we have had regarding his memory that we have observed here. He states I'm 71, it is okay to be a little weird . Discussed with him regarding again decrease in his platelet level and hemoglobin. Vitals/I&O/Wt Last Vital Signs Temp 98.1 F 02/08/21 07:00 Pulse 62 02/08/21 10:07 Resp 16 02/08/21 10:07 BP 164/63 02/08/21 10:00 Pulse Ox 97 02/08/21 10:07 02/07/21 02/08/21 02/08/21 22:59 06:59 14:59 Intake Total 474 / 566.376 2988 / 1764.582 500 / 500 Output Total 800 / 2375 1700 / 4075 1000 / 1000 Balance -326 / -1900.418 -410 / -2310.418 -500 / -500 Weight last 48 hrs Weight 145.286 kg Weight 144.741 kg Physical Exam Const: COMMON NORMALS: no acute distress and alert NUTRITIONAL APPEARANCE: obese ORIENTATION/CONSCIOUSNESS: Yes awake HENMT: COMMON NORMALS: oropharynx normal Neck/C-Spine: COMMON NORMALS: no JVD Resp: COMMON NORMALS: normal respiratory effort and clear to auscultation bilaterally AUSCULTATION: clear to auscultation bilaterally Cardio: COMMON NORMALS: no JVD, regular rhythm, S1 normal heart sound present, S2 normal heart sound present and No murmurs present (Cardio) RHYTHM: regular rhythm HEART SOUNDS: S1 normal heart sound present and S2 normal heart sound present GI: COMMON NORMALS: Normal to inspection, nondistended, normoactive bowel sounds present, Soft to palpation and non-tender PALPATION: Yes Soft to palpation Extremity: COMMON NORMALS: no joint enlargement and no pedal edema Neuro: COMMON NORMALS: moves all extremities SENSORIUM/ORIENTATION: Yes alert Skin: COMMON NORMALS: no rashes or lesions noted GENERAL SKIN EXAM: no rashes or lesions noted Urinary Catheter Management^: Acharya: Cath Placed During This Visit: yes Reason for Continuing Indwelling Catheter: Accurate Measurement of Urinary Output in Critically Ill Patients Urinary Catheter Date of Insertion: 02/05/21 Urinary Catheter Time of Insertion: 22:31 Data : 02/08/21 03:40 02/08/21 03:40 Micro: Microbiology 02/05/21 20:13 Urine Culture - Final Urine,Clean Catch A&P Assessment and plan (1) Acute encephalopathy: Discussed with patient concern regarding his memory and that he is seeing things which are not there. Discussed with psychiatry. Ammonia remains normal. He is not significantly hypercapnic. No signs of acute infection or sepsis. Resume low-dose Lyrica. Unremarkable CT head. Status: Acute (2) Hypovolemic shock: Shock resolved. Weaned off pressor. DC Acharya. Continue IV fluid rehydration. Status: Acute (3) Pancytopenia: Further decreasing platelet level to 30,000. Hemoglobin down to 9. Discussion with him regarding transfusion of 2 units of platelets. Status: Acute (4) Melanotic stools: Possible GI bleeding. With GI bleeding, underlying cirrhosis, continue empiric ceftriaxone. Acute anemia. Endoscopic assessment deferred for now all until we have a better idea about his cognitive issues. Monitor hemoglobin. Transfuse platelets. Status: Acute (5) JILLIAN (acute kidney injury): Continue to improve. Monitor renal function, I&O. Fluid challenge. Maintain blood pressures. Hold lisinopril. Hold diuretic. Status: Acute (6) UTI (urinary tract infection): Continue ceftriaxone. Status: Acute Attestations Medical Necessity Statement*: Continue admission for assessment management of episodes of confusion and memory difficulties, pancytopenia, acute anemia, thrombocytopenia, additional platelet transfusion due to worsening anemia, monitoring for continued improvement of acute kidney injury. Post discharge planning. 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
--- NOTE | 2021-02-08 12:13 | PC.CHAP ---
Pastoral Care Encounter/Spiritual Assessment Type of Contact [] Declined leather polisher visit [] Patient/Family/Request visit [] Outpatient visit [] Follow-up visit [] Physician referral [] Code/Alert [x] Routine visit [] Staff referral [] Actively dying [] Patient sleeping [] Family support [] [] Out of room [] Palliative care [] [] Receiving care in room [] Pre-surgical visit [] Trauma [] Long length of stay [x] ICU visit [] Other: Relational/Emotional Strength [] Patient feels connected with others/family/visitors/staff [] Distress [] Loneliness/isolation [] Abandonment Spirituality of Patient [x] Person of [place] [] Attends Bahai of their [place] [] Believes in Prayer [] Reads Bible or Synagogue materials [] There are Spiritual issues to be addressed Siebel Developer Interventions [x] Prayer [x] Active listening [x] Non-anxious presence [x] Spiritual/emotional support [] Crisis/trauma care [] Spiritual counseling [] Bereavement support [] Provided bereavement packet [] Provided Bible/devotional materials [] Provided toy/stuffed animal, coloring book to patient or family member [] Provided Communion [] Anointing/[place] [] Salvation [x] Completed spiritual assessment [] Other: Impact on Illness or Injury [] Angry [] Fearful [] Anxious [] Often cries [] Exhaustion [] Unable to work [] Unable to attend buddhism [] Unable to walk/stand [] Unable to read [] Unable to drive [] Unable to eat/drink [] Unable to sleep [] Unable to be with family [] Patient intubated [] Other: Summary patient has much improved.. feels better everyday Time spent with patient 10 min
--- NOTE | 2021-02-08 13:20 | PC.NURSE ---
Blood bank took awhile to do second verification on both units of platelets, they arrived in time just was not able to scan them fast enough for the 20 min time frame with the delay in blood bank
--- NOTE | 2021-02-08 15:16 | PC.SOCIAL ---
*IMM UPDATE* Platform Worker gave verbal IMM update to patient's sister via phone. Understood. Initialed, dated, timed and placed in chart.
--- NOTE | 2021-02-08 15:38 | P.CONIM_ITS ---
Providers/Reason for Consult Consulting Physican/Specialty*: Napoleon Hobbs MD. Psychiatry. Reason for Consult*: Evaluation of altered mental status. Attending Physician: Todd Chavez Primary Care Provider: Corey Lopez DO Psych Consult HPI History of Present Illness Fabiano Young is a 71 year old male who presented to the emergency department and had this presentation noted by the surgical consult: Patient appears a bit confused, information obtained from patient's chart. Fabiano Young is a 71 year old male who presented to the ER with generalized weakness. Patient apparently used to drink alcohol daily. In the ER a CT abdomen pelvis showed cirrhosis with portal hypertension and no other pathology. Patient is admitted to the ICU since he was hypotensive and received blood transfusion. Today he does not appear to be in distress, denies any nausea, vomiting, abdominal pain. He states that he has fresh blood in his stools. He is not sure when he had his last colonoscopy. He was admitted to the ICU for definitive treatment of those concerns. It was noted that he had a GI bleed. But there were concerns related to his mental status and so a psychiatric consult was requested. He presents today reporting that he is never had psychiatric treatment for inpatient setting. Denies any history of psychiatric concerns or mental health treatment. He endorsed smoking cigarettes or quitting recently because he started having these confusion episodes where he was going to possibly [place]. He denies alcohol use he reports he has in the past but there is some confusion as to when he last used. He denies using marijuana or any other illicit drug use. He was not a great historian as he often meandered in the conversation alluding to an answer but never really coming [place] to that answer. He can never fully tell me what the circumstances were going to the hospital. He made some reference to something happening where he would lift his arm up in the leaves strength and then be fine right away. He cannot tell me anything about the concerns about a GI bleed or any of the interventions that any of the providers have rendered. He talked about the possibility of going to his sister's house but then takes that at his daughter's place but he did have a great sense of why he would go there or what will be helped by him going. He [facility] to a [facility] and alluded that that to be helpful but that he needed to do some things before he went to a group home facility. Psychiatric history: As above. Substance abuse history: As above. It is unclear what exactly is going on from the standpoint of his possible alcohol use as is recall on specific issues is limited. Family history: He reports that his father had significant addiction issues in his the family. Developmental history: There were no problems with the , or delivery, learned to walk and talk and met developmental milestones on time, and denies need for speech therapy, learning support, emotional support or special education classes. Psychosocial history: He reports his parents were together when he was born but that he is the only product of that union. He reports that his mother had 8 children 7 of which were girls. He denied knowledge of whether his father had any other children he reports that he is the oldest of his mother's children. He endorsed having a sister that had some defect that was discovered late that involve again atrophic cerebellum or nondevelopment of the cerebellum. He reports that his childhood was tough because he had to grow quickly as the oldest and the male. He denied emotional, physical or sexual abuse. He reports the highest grade reach was the 10th grade and then he started working. He was being heterosexual. He reports being once and once, having a daughter that was almost 46 years old, endorsing no previous service and saying that he believes in God. 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 He reports he lives in a trailer alone. Legal history: He denies ever being in correction or having legal peril. Medical history: Please see hospitalist note for full details. Meds Current Medications: Current Medications Generic Name Dose Route Start Last Admin Trade Name Homero PRN Reason Stop Dose Admin Atorvastatin Calci um 80 mg 02/08/21 09:00 02/08/21 08:45 Atorvastatin 40 Mg Tablet PO 80 mg DAILY FAISAL Administration Fenofibrate 145 mg 02/08/21 09:00 02/08/21 08:46 Fenofibrate 145 Mg Tablet PO 145 mg DAILY FAISAL Administration Folic Acid 1 mg 02/08/21 09:00 02/08/21 08:45 Folic Acid 1 Mg Tablet PO 1 mg DAILY FAISAL Administration Norepinephrine Bit artrate 4 mg 254 mls @ 0 mls/h r 02/05/21 18:00 02/07/21 13:41 / Dextrose IV Infused .Q0M FAISAL Titration Protocol Per Protocol Dextrose/Sodium Ch loride 1,000 mls @ 75 ml s/hr 02/06/21 01:15 02/09/21 05:02 Dextrose 5%-Sod Chloride 0.45% IV 75 mls/hr .[id number] FAISAL Administration Ceftriaxone Sodium 1,000 mg/ 50 mls @ 100 mls/ hr 02/06/21 01:15 02/09/21 05:34 Sodium Chloride IV Infused Q24H FAISAL Infusion Protocol Lorazepam 2 mg 02/07/21 09:13 02/09/21 02:44 Lorazepam 2 Mg/M l Inj 1 Ml IVP 2 mg PRN PRN Administration WITHDRAWAL Protocol Multivitamins Ther apeutic 1 tab 02/07/21 09:15 02/08/21 08:45 Multivitamin The rapeutic Tablet PO 1 tab DAILY FAISAL Administration Nicotine 1 patch 02/07/21 11:35 02/08/21 08:47 Nicotine 21 Mg P atch TRANSDERMA Not Given DAILY FAISAL Pantoprazole Sodiu m 40 mg 02/06/21 08:00 02/08/21 20:24 Pantoprazole 40 Mg Sdv IV 40 mg Q12H FAISAL Administration Pregabalin 75 mg 02/08/21 09:00 02/08/21 17:19 Pregabalin 75 Mg Capsule PO Not Given BID FAISAL Rifaximin 550 mg 02/06/21 09:00 02/08/21 17:52 Rifaximin 550 Mg Tablet PO 550 mg BID FAISAL Administration Protocol Thiamine Mononitra te 100 mg 02/07/21 09:15 02/08/21 08:45 Thiamine 100 Mg Tablet PO 100 mg DAILY FAISAL Administration PFSH NPU PFSH: Medical History Alcohol abuse Diabetes Portal hypertension Surgical History H/O esophagogastroduodenoscopy Hx of colonoscopy Family History Other Family history non-contributory Social History Smoking and tobacco status: heavy tobacco smoker cigarettes Packs smoked per day: 20 [ Other cigarette details: 1 pack/day ] Alcohol intake: current Substance/Drug Use: never Housing: House Mental Status Exam MSE Comments: This is an obese white male in a hospital gown with limited grooming and adequate eye contact with poor dentition. No abnormal movements except for psychomotor retardation. Cooperative with exam in no acute distress. Speech was decreased rate and volume. Mood described as okay, affect subdued. Thought process organized. Thought content: Patient denied suicidal or homicidal ideation, there were no delusions reported or noted, he denied any auditory or visual hallucinations but was at times distracted easily. Attention and concentration was limited and memory seemed intact for general knowledge but he seemed to be absolutely clueless to the issue surrounding his health or hospitalization, but none were formally tested. He is alert and oriented x3. Insight and judgment are fair, impulse control is limited. Vitals/I&O/Wt Last Vital Signs Temp 97.9 F 02/08/21 13:30 Pulse 71 02/08/21 13:30 Resp 12 02/08/21 13:30 BP 131/46 02/08/21 13:30 Pulse Ox 98 02/08/21 13:30 02/08/21 14:59 Intake Total 650 / 650 Output Total 1700 / 1700 Balance -1050 / -1050 Weight last 48 hrs Weight 145.286 kg Weight 144.741 kg Physical Exam Urinary Catheter Management^: Acharya: Cath Placed During This Visit: yes Reason for Continuing Indwelling Catheter: Accurate Measurement of Urinary Output in Critically Ill Patients Urinary Catheter Date of Insertion: 02/05/21 Urinary Catheter Time of Insertion: 22:31 A&P Assessment and plan (1) UTI (urinary tract infection): Status: Acute (2) Acute encephalopathy: Status: Acute (3) Hypovolemic shock: Status: Acute (4) JILLAIN (acute kidney injury): Status: Acute (5) Melanotic stools: Status: Acute (6) Pancytopenia: Status: Acute (7) Altered mental status: Status: Acute (8) History of alcohol abuse: Status: Acute Additional A&P Information This is a 31-year-old white male who presented for subacute medical issues with reports of hallucinations and confusion who presents currently seeming alert and oriented however seeming to have no understanding or insight of his medical condition and raising the question of capacity but definitely whether or not he would be other manage his medical condition independently at home. 1. Continue current medication. 2. Currently would have concerns about him managing his medical treatment at home but it is unclear whether he has capacity to make informed consent. 3. We will follow up tomorrow and see if his functioning has any improvement. 4. Need to investigate whether this altered mental status could be related to his alcohol history either through recent use of alcohol or a Warnicke's situat ion. Attestations NPU Medical Necessity Statement*: N/A. Please see primary team note for medical necessity. Coding Level of Care Code Acute Counselor/Art Therapist for g Fwd Diagnoses UTI (urinary tract infection) N39.0 Acute encephalopathy G93.40 Hypovolemic shock R57.1 JILLIAN (acute kidney injury) N17.9 Melanotic stools K92.1 Pancytopenia D61.818 Altered mental status R41.82 History of alcohol abuse F10.11
--- NOTE | 2021-02-08 19:32 | PC.NURSE ---
Patient in room resting, vitals have been stable all day but patient has been Hallucinating, psychology consulted per Dr Chavez to help understand the random confusion and hallucinations. Waiting for Surgery to discuss plan of care for possible colonoscopy or EGD so patient is NPO at this time. Patient received to units of platelets to help with his bleed and is on IV protonix. Dr Chavez said lactulose can be PRN and titrated based on the amount of bowel movements that patient is having, goal is for 2-3 a day.
--- NOTE | 2021-02-08 19:33 | PC.NURSE ---
AO to person and place, mild haulcinations at times noted by previous nurse and PCP, follows commands, no C/O at this time
[2021-02-09] VITALS (27 sets, daily range): BP systolic 130–194; BP diastolic 45–87; PULSE 64–87; RESP 14–22; TEMP 37; O2SAT 90–97
[2021-02-09] MEDS: cefTRIAXone 1,000 MG in sodium chloride 0.9% (plus) 50 ML 100 MG IV (02:08)
[2021-02-09] MEDS: LORazepam 2 mg/mL INJ 1 mL IVP ×3 (02:44→15:50)
[2021-02-09 04:05] LABS: Basophils % 0.7 %; Eosinophils % 0.7 %; Hematocrit 27.6 % (42.0-52.0); Hemoglobin 8.4 g/dL (11.7-16.6); Lymphocytes # 0.6 10^3/uL (0.8-4.8); Lymphocytes % 20.7 %; Mean Corpuscular HGB Conc 30.4 g/dL (30.0-36.0); Mean Corpuscular Hemoglobin 30.5 pg (28.0-34.0); Mean Corpuscular Volume 100.4 fL (80-94); Monocytes # 0.4 10^3/uL (0.2-0.9); Monocytes % 15.1 %; Neutrophils # 1.68 10^3/uL (1.8-7.7); Neutrophils % 62.1 %; Nucleated Red Blood Cells % 0 %; Platelet Count 52 10^3/cmm (130-400); Red Blood Count 2.75 10^6/uL (4.1-5.3); Red Cell Distribution Width 18.7 % (12.1-15.1); White Blood Count 2.7 10^3/uL (4.0-10.0)
--- NOTE | 2021-02-09 04:12 | PC.NURSE ---
confused about day, location, did not recall being in hospital, attempting to get self out of bed
[2021-02-09 04:21] LABS: Alanine Aminotransferase 10 U/L (0-41); Albumin Level 3.4 g/dL (3.5-5.2); Alkaline Phosphatase 43 IU/L (40-130); Anion Gap 12.3 (5-19); Aspartate Amino Transferase 23 U/L (0-40); Blood Urea Nitrogen 43 mg/dL (8-23); Calcium 9.4 mg/dL (8.5-10.5); Carbon Dioxide 28 mmol/L (22-29); Chloride 109 mmol/L (98-107); Globulin 3.4 g/dL (1.3-4.6); Glucose 123 mg/dL (65-115); Osmolality Calculated 312 mOsm/kg (285-295); Potassium 4.3 mmol/L (3.5-5.1); Sodium 145 mmol/L (136-145); Total Bilirubin 0.7 mg/dL (0.15-1.2); Total Protein 6.8 g/dL (6.6-8.7)
[2021-02-09] MEDS: dextrose 5%-sod chloride 0.45% 1,000 ML 75 ML IV ×2 (05:02→18:34)
--- NOTE | 2021-02-09 05:08 | PC.NURSE ---
increased in attempts to get self out of bed, increased Hallucinations, Awaiting Psyc consult on next shift
[2021-02-09] MEDS: pantoprazole 40 mg SDV IV ×2 (07:52→21:02)
[2021-02-09] MEDS: thiamine 100 mg Tablet PO (08:58)
[2021-02-09] MEDS: pregabalin 75 mg Capsule PO (08:58)
[2021-02-09] MEDS: multivitamin therapeutic Tablet 1 TAB PO (08:58)
[2021-02-09] MEDS: fenofibrate 145 mg Tablet PO (08:58)
[2021-02-09] MEDS: folic acid 1 mg Tablet PO (08:58)
[2021-02-09] MEDS: atorvastatin 40 mg Tablet 80 MG PO (08:59)
[2021-02-09] MEDS: nicotine 21 mg Patch 1 PATCH TRANSDERMA (08:59)
--- NOTE | 2021-02-09 10:07 | PC.NURSE ---
pulling at tubing on iv pole. sitter at bedside to assist in stopping him.
--- NOTE | 2021-02-09 11:28 | PC.NURSE ---
p.t. assisted up to chair. wayne. fair. good wt. bearing. having difficulty following instructions. up approx. 1 hr. assisted back to bed. tremors noted. orientedto p.p.t. but continues to hallucinate.
--- NOTE | 2021-02-09 11:31 | PC.NURSE ---
exertional wheezes noted.
--- NOTE | 2021-02-09 12:12 | PC.NURSE ---
resting quieter, but continues to hallucinate. sitter at bedside.
--- NOTE | 2021-02-09 13:51 | PC.NURSE ---
scds made pt. more anxious.
--- NOTE | 2021-02-09 14:17 | PC.NURSE ---
10 40 d/t high urine output and pt. confusion, dr. mullen leaving delgado in for now. will monitor.
--- NOTE | 2021-02-09 14:20 | PC.NURSE ---
pt. much quieter after ativan.
--- NOTE | 2021-02-09 15:33 | PC.NURSE ---
remains resting quietly
--- NOTE | 2021-02-09 15:35 | PC.NURSE ---
starting picking at the air.
--- NOTE | 2021-02-09 16:02 | P.PN_ITS ---
Subjective Subjective: Interval history: On walking into the room the patient appears to be talking to somebody, although there is nobody else in the room but him, and the television. Today he denies any complaints. Denies trouble breathing, chest pain or pressure. Denies lightheadedness. He remembers the year, 2020, knows he is in the [facility]. He does not appear to remember the conversation from yesterday where he reported that we were close to the water . The nurse reported that earlier he was seeing her being sideways on the wall . Social dervices noted that when providing patient with paperwork he asked him why they were trying to bereket him. During my examination asking for a listen to his heart, he still is sure, then grabs onto my wrist squeezing it yells out does not help you? repeatedly. Asking what he was doing states all, I thought you were trying to measure blood pressure . Then states I could also squeeze here , trying to reach towards my neck. In the afternoon required some Ativan, remained calm. In the evening confused, restless, not leaving oxygen on, swinging arms at nursing staff. Vitals/I&O/Wt Last Vital Signs Temp 98.6 F 02/09/21 03:13 Pulse 75 02/09/21 14:00 Resp 15 02/09/21 14:00 BP 167/54 02/09/21 14:00 Pulse Ox 91 02/09/21 06:00 02/09/21 02/09/21 02/09/21 06:59 14:59 22:59 Intake Total 1050 / 3081.25 280 / 280 Output Total 1600 / 4600 1100 / 1100 Balance -550 / -1518.75 -820 / -820 Weight last 48 hrs Weight 141.521 kg Weight 145.286 kg Physical Exam Const: COMMON NORMALS: no acute distress and alert NUTRITIONAL APPEARANCE: obese ORIENTATION/CONSCIOUSNESS: Yes awake OTHER: Oriented to year, place, but poor insight into his medical condition, bizarre behavior HENMT: COMMON NORMALS: oropharynx normal Neck/C-Spine: COMMON NORMALS: no JVD Resp: COMMON NORMALS: normal respiratory effort and clear to auscultation bilaterally AUSCULTATION: clear to auscultation bilaterally Cardio: COMMON NORMALS: no JVD, regular rhythm, S1 normal heart sound present, S2 normal heart sound present and No murmurs present (Cardio) RHYTHM: regular rhythm HEART SOUNDS: S1 normal heart sound present and S2 normal heart sound present GI: COMMON NORMALS: Normal to inspection, nondistended, normoactive bowel sounds present, Soft to palpation and non-tender PALPATION: Yes Soft to palpation Extremity: COMMON NORMALS: no joint enlargement and no pedal edema Neuro: COMMON NORMALS: moves all extremities SENSORIUM/ORIENTATION: Yes alert Urinary Catheter Management^: Acharya: Cath Placed During This Visit: yes Reason for Continuing Indwelling Catheter: Accurate Measurement of Urinary Output in Critically Ill Patients Urinary Catheter Date of Insertion: 02/05/21 Urinary Catheter Time of Insertion: 22:31 Data : 02/09/21 03:25 02/09/21 03:25 A&P Assessment and plan (1) Acute encephalopathy: Discussed with psychiatry. He remains oriented to place and year. Acute versus chronic encephalopathy. He does not appear to respond to Ativan. Appears perhaps getting more disinhibited, and as alcoholism appears not to be recent, discontinue Ativan. Through the afternoon with hypoxia, lethargy reported. Combative, swinging at nursing staff. Requested Haldol. Monitor in ICU. Restraints as appropriate for safety of self and others. One-to-one sitter. Does not appear to be in sepsis. Renal function continue to improve. No recurrence of hypotension. Appreciate psychiatric recommendations. Given chronicity of progressive symptoms, he would benefit from geriatric psychiatric evaluation and treatment. Ammonia remains normal. Unremarkable CT head. TSH Status: Acute (2) Hypovolemic shock: Shock resolved. Acharya maintained in place for now as he is becoming polyuric with recovery of renal function. Monitor closely. Continue IV fluid rehydration. Status: Acute (3) Pancytopenia: Responded well to platelet transfusion. Monitor platelets. Blood count. Follow-up peripheral smear. We will need follow-up with hematology. Status: Acute (4) Melanotic stools: Possible GI bleeding. With GI bleeding, underlying cirrhosis, continue empiric ceftriaxone. Continue PPI. Monitor hemoglobin, platelet level. Acute anemia. Endoscopic assessment deferred for now all until we have a better idea about his cognitive issues. Status: Acute (5) JILLIAN (acute kidney injury): Polyuria with renal function recovery. Monitor COLEMAN. Monitor electrolytes. Maintain blood pressures. Hold lisinopril. Hold diuretic. Status: Acute (6) UTI (urinary tract infection): Continue ceftriaxone. Status: Acute Attestations Medical Necessity Statement*: Continue admission for assessment management of encephalopathy, pancytopenia, resolving acute kidney injury entering diuretic phase, additional assessment of decisional capacity, disposition planning. Coding Level of Care Code Acute Digital Media Designer for [facility] Fwd Diagnoses Acute encephalopathy G93.40 Hypovolemic shock R57.1 Pancytopenia D61.818 Melanotic stools K92.1 JILLIAN (acute kidney injury) N17.9 UTI (urinary tract infection) N39.0
--- NOTE | 2021-02-09 19:20 | PC.NURSE ---
Lethargic, groans to sternal rub, O2 sat 76% NC not in nose, place on 5L Oxymask O2 sat 99% at this time, one on one sitter at bedside
--- NOTE | 2021-02-09 19:41 | PC.NURSE ---
not want to leave OXY mask on, attempting to get self out of bed, attempted to hit this nurse, movements are sluggish and delayed
--- NOTE | 2021-02-09 19:50 | PC.NURSE ---
patient combative, hitting staff and sitter, not keeping Oxymask on, O2 sat 88% RA, Dr. Hickman gave T.O. for Haledol 2mg IM now x1
[2021-02-09] MEDS: haloperidol inj 5 mg/mL INJ 1 mL 2 MG IM (19:56)
--- NOTE | 2021-02-09 22:17 | PC.NURSE ---
Dr. Mcbride approved order for medical restraints
[2021-02-09 23:07] LABS: Glucose Point of Care 138 mg/dL (70-110)
[2021-02-10] VITALS (27 sets, daily range): BP systolic 123–173; BP diastolic 48–98; PULSE 54–105; RESP 11–25; TEMP 36.6–37.9; O2SAT 88–100
[2021-02-10 00:39] LABS: Thyroid Stimulating Hormone 2.73 uIU/mL (0.27-4.20)
[2021-02-10] MEDS: cefTRIAXone 1,000 MG in sodium chloride 0.9% (plus) 50 ML 100 MG IV (01:36)
--- NOTE | 2021-02-10 04:21 | PC.NURSE ---
increased PACs noted on telemetry, reported to Dr. Mcbride [email or web address]. given to add Mag level to morning labs
[2021-02-10 04:49] LABS: ABG PCO2 46.7 mmHg (35-45); ABG PH Result 7.41 (7.35-7.45); Arterial Blood Gas Hematocrit 27.3 % (42-52); Base Excess ABG 4.1 mmol/L (-2.0-2.0); Blood Gas Allen Test Pos; Blood Gas Sample Site Radial, right; Blood Gas Sample Type Arterial; HCO3 ABG 29.3 mmol/L (22-26); Oxygen Device OXY MASK; PO2 ABG 96.5 mmHg (80.0-100.0)
[2021-02-10 04:50] LABS: Glucose Point of Care 119 mg/dL (70-110)
[2021-02-10 05:21] LABS: Basophils % 0.7 %; Eosinophils % 0.4 %; Hematocrit 28.8 % (42.0-52.0); Hemoglobin 8.6 g/dL (11.7-16.6); Lymphocytes # 0.5 10^3/uL (0.8-4.8); Lymphocytes % 19.1 %; Mean Corpuscular HGB Conc 29.9 g/dL (30.0-36.0); Mean Corpuscular Hemoglobin 30.8 pg (28.0-34.0); Mean Corpuscular Volume 103.2 fL (80-94); Monocytes # 0.6 10^3/uL (0.2-0.9); Monocytes % 19.9 %; Neutrophils # 1.68 10^3/uL (1.8-7.7); Neutrophils % 59.5 %; Nucleated Red Blood Cells % 0 %; Platelet Count 48 10^3/cmm (130-400); Red Blood Count 2.79 10^6/uL (4.1-5.3); Red Cell Distribution Width 18.3 % (12.1-15.1); White Blood Count 2.8 10^3/uL (4.0-10.0)
[2021-02-10 05:40] LABS: Alanine Aminotransferase 10 U/L (0-41); Albumin Level 3.4 g/dL (3.5-5.2); Alkaline Phosphatase 42 IU/L (40-130); Aspartate Amino Transferase 30 U/L (0-40); Blood Urea Nitrogen 32 mg/dL (8-23); Calcium 9.7 mg/dL (8.5-10.5); Carbon Dioxide 28 mmol/L (22-29); Chloride 111 mmol/L (98-107); Globulin 2.8 g/dL (1.3-4.6); Glucose 111 mg/dL (65-115); Magnesium 1.8 mg/dL (1.7-2.3); Osmolality Calculated 310 mOsm/kg (285-295); Sodium 146 mmol/L (136-145); Total Protein 6.2 g/dL (6.6-8.7)
--- NOTE | 2021-02-10 06:53 | PC.NURSE ---
Patient more alert, able to recall being in [place], cooperative at this time, restraints removed approximately 0500
--- NOTE | 2021-02-10 07:00 | ECG_ITS ---
[facility] Test Date: 2021-02-10 Pat Name: Fabiano Young Department: Room: ICU07 Gender: Male Pmo Consultant: : 1950 Requested By: Todd Chavez Order Number: [id number] Juan Alberto MD: Diana Simpson M.D. Measurements Intervals [place] Rate: 72 P: 40 SC: 164 QRS: -45 QRSD: 138 T: 52 QT: 421 QTc: 462 Interpretive Statements SINUS RHYTHM WITH FREQUENT VENTRICULAR PREMATURE COMPLEXES RIGHT BUNDLE BRANCH BLOCK [120+ ms QRS DURATION, UPRIGHT V1, 40+ ms S IN I/aVL/V4/V5/V6] LEFT ANTERIOR FASCICULAR BLOCK [QRS AXIS <= -45, QR IN I, RS IN II] POSSIBLE ANTERIOR MYOCARDIAL INFARCTION [30 ms Q WAVE IN V3/V4, OR R < 0.2 mV IN V4], PROBABLY OLD No previous ECG available for comparison Electronically Signed On 02-10-2021 20:33:40 CDT by Diana Simpson M.D. [id number]
--- NOTE | 2021-02-10 07:03 | PM.NPN ---
Subjective NPU Subjective: Interval history: Fabiano was in his bed and alert unlike yesterday when he was not seen by this teletypewriter operator because he had received Ativan and was pretty out of it. Today he presents very talkative but still concerning for having 0 idea of what he is in hospital. Even with cues he was unable to articulate anything about a GI bleed or getting transfusions or anything of that nature. He has no idea why he is in here now and therefore has no idea why going to a higher level of care is necessary. He continues to show lack of capacity due to his bong unawareness of the situation and what problems arise from different treatments or anything of that nature. Mental Status Exam MSE Comments: This is an obese white male in a hospital gown with limited grooming and adequate eye contact with poor dentition. No abnormal movements except for psychomotor retardation. Cooperative with exam in no acute distress. Speech was decreased rate and volume. Mood described as pretty good, affect subdued, but reactive. Thought process organized. Thought content: Patient denied suicidal or homicidal ideation, there were no delusions reported or noted, he denied any auditory or visual hallucinations.. Attention and concentration was improving and memory seemed intact for general knowledge but he continued to be absolutely clueless to the issue surrounding his health or hospitalization, but none were formally tested. He is alert and oriented x3. Insight and judgment are fair, impulse control is limited. Vitals/I&O/Wt Last Vital Signs Temp 98.6 F 02/09/21 03:13 Pulse 64 02/10/21 06:00 Resp 15 02/10/21 06:00 BP 126/76 02/10/21 06:00 Pulse Ox 90 02/10/21 06:00 02/09/21 02/10/21 Intake Total 1000 / 1280 50 / 1330 Output Total 1400 / 2500 1250 / 3750 Balance -400 / -1220 -1200 / -2420 Weight last 48 hrs Weight 142.882 kg Weight 141.521 kg Physical Exam Urinary Catheter Management^: Acharya: Cath Placed During This Visit: yes Reason for Continuing Indwelling Catheter: Accurate Measurement of Urinary Output in Critically Ill Patients Urinary Catheter Date of Insertion: 02/05/21 Urinary Catheter Time of Insertion: 22:31 Data NPU : 02/11/21 04:25 02/11/21 04:25 A&P Additional A&P Information (1) UTI (urinary tract infection): (2) Acute encephalopathy: (3) Hypovolemic shock: (4) JILLIAN (acute kidney injury): (5) Melanotic stools: (6) Pancytopenia: (7) Altered mental status: (8) History of alcohol abuse: Additional A&P Information This is a 31-year-old white male who presented for subacute medical issues with reports of hallucinations and confusion who presents currently seeming alert and oriented however seeming to have no understanding or insight of his medical condition and raising the question of capacity but definitely whether or not he would be other manage his medical condition independently at home. 1. Continue current medication. 2. Currently would have concerns about him managing his medical treatment at home but it is unclear whether he has capacity to make informed consent. 3. We will follow up tomorrow and see if his functioning has any improvement. 4. Need to investigate whether this altered mental status could be related to his alcohol history either through recent use of alcohol or a Warnicke's situation, or a response to hypokalemia and a urinary tract infection. Attestations NPU Medical Necessity Statement*: N/A. Please see primary team note for medical necessity. Coding Level of Care Code Acute Middle School Technology Teacher for [facility]
[2021-02-10 08:26] LABS: Ammonia 43 umol/L (16-60)
[2021-02-10] MEDS: fenofibrate 145 mg Tablet PO (08:30)
[2021-02-10] MEDS: atorvastatin 40 mg Tablet 80 MG PO (08:32)
[2021-02-10] MEDS: pregabalin 75 mg Capsule PO ×2 (08:33→19:17)
[2021-02-10] MEDS: thiamine 100 mg Tablet PO (08:34)
[2021-02-10] MEDS: multivitamin therapeutic Tablet 1 TAB PO (08:35)
[2021-02-10] MEDS: folic acid 1 mg Tablet PO (08:35)
[2021-02-10] MEDS: dextrose 5%-sod chloride 0.45% 1,000 ML 75 ML IV ×2 (08:36→21:17)
[2021-02-10] MEDS: nicotine 21 mg Patch 1 PATCH TRANSDERMA (08:39)
[2021-02-10] MEDS: pantoprazole 40 mg SDV IV ×2 (08:39→19:16)
--- NOTE | 2021-02-10 11:11 | PM.PN ---
Subjective Subjective: Interval history: This morning he appears calm. Comfortable. Denies pain or discomfort. Denies trouble breathing. No abdominal pain. Says only some discomfort at the bottom with the rectal tube in place. Vitals/I&O/Wt Last Vital Signs Temp 98.9 F 02/10/21 10:00 Pulse 94 02/10/21 10:00 Resp 11 L 02/10/21 10:00 BP 155/62 02/10/21 10:00 Pulse Ox 92 02/10/21 10:00 02/09/21 02/10/21 02/10/21 22:59 06:59 14:59 Intake Total 1000 / 1280 50 / 1330 1000 / 1000 Output Total 1400 / 2500 1250 / 3750 Balance -400 / -1220 -1200 / -2420 1000 / 1000 Weight last 48 hrs Weight 142.882 kg Weight 141.521 kg Physical Exam Const: COMMON NORMALS: no acute distress and alert NUTRITIONAL APPEARANCE: obese ORIENTATION/CONSCIOUSNESS: Yes awake OTHER: To the much calmer. Cooperative. HENMT: COMMON NORMALS: oropharynx normal Neck/C-Spine: COMMON NORMALS: no JVD Resp: COMMON NORMALS: normal respiratory effort and clear to auscultation bilaterally AUSCULTATION: clear to auscultation bilaterally Cardio: COMMON NORMALS: no JVD, regular rhythm, S1 normal heart sound present, S2 normal heart sound present and No murmurs present (Cardio) RHYTHM: regular rhythm HEART SOUNDS: S1 normal heart sound present and S2 normal heart sound present GI: COMMON NORMALS: Normal to inspection, nondistended, normoactive bowel sounds present, Soft to palpation and non-tender PALPATION: Yes Soft to palpation Extremity: COMMON NORMALS: no joint enlargement and no pedal edema Neuro: COMMON NORMALS: moves all extremities SENSORIUM/ORIENTATION: Yes alert Skin: COMMON NORMALS: no rashes or lesions noted GENERAL SKIN EXAM: no rashes or lesions noted Urinary Catheter Management^: Acharya: Cath Placed During This Visit: yes Reason for Continuing Indwelling Catheter: Accurate Measurement of Urinary Output in Critically Ill Patients Urinary Catheter Date of Insertion: 02/05/21 Urinary Catheter Time of Insertion: 22:31 Data : 02/10/21 04:38 02/10/21 04:38 A&P Assessment and plan (1) Acute encephalopathy: Yesterday confused, restless, combative. Required Haldol. This morning calm, comfortable. Cooperative. Continue psychiatric reassessments. Does not appear to be in sepsis. Renal function continue to improve. No recurrence of hypotension. Appreciate psychiatric recommendations. Given chronicity of progressive symptoms, he would benefit from geriatric psychiatric evaluation and treatment. Ammonia remains normal. Unremarkable CT head. TSH normal Discussed with sister Valorie Pride. She is agreeable with geriatric psychiatric facility placement. Curious about location. Asked case management to give her a call and discuss in more detail. Status: Acute (2) Hypovolemic shock: Shock resolved. Status: Acute (3) Pancytopenia: Monitor counts. So far appears to have somewhat stabilized, although hemoglobin with slight decline. Endoscope collection has been deferred for now. Responded well to platelet transfusion. Monitor platelets. Blood count. Follow-up peripheral smear. Will need follow-up with hematology. Status: Acute (4) Melanotic stools: Possible GI bleeding. With GI bleeding, underlying cirrhosis, continue empiric ceftriaxone. Continue PPI. Monitor hemoglobin, platelet level. Acute anemia. Endoscopic assessment deferred for now all until we have a better idea about his cognitive issues. Status: Acute (5) JILLIAN (acute kidney injury): Appears also entering diuretic phase of ATN. Polyuria appears improved. Monitor COLEMAN. Electrolytes. Encourage oral intake. Hold lisinopril. Hold diuretic. Status: Acute (6) UTI (urinary tract infection): Continue ceftriaxone. Culture unrevealing. Status: Acute Additional A&P Information Diarrhea: Diarrhea persist despite discontinuation of lactulose, changed to as needed schedule. Will check C. difficile. Attestations Medical Necessity Statement*: Continue admission for assessment management of encephalopathy, assessment of acute anemia, pancytopenia, assessment of diarrhea, disposition planning, arrangements for placement to geriatric psychiatric facility. 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
--- NOTE | 2021-02-10 11:24 | PC.SOCIAL ---
IMM Updated Updated pt on Pg 2 IMM. No questions voiced. Provided pt a copy. Signed, dated, & timed copy in chart.
[2021-02-11] VITALS (19 sets, daily range): BP systolic 113–160; BP diastolic 48–92; PULSE 73–153; RESP 13–23; TEMP 36.1–36.9; O2SAT 92–100; BMI 43.5
[2021-02-11] MEDS: cefTRIAXone 1,000 MG in sodium chloride 0.9% (plus) 50 ML 100 MG IV (02:16)
[2021-02-11 05:26] LABS: Basophils % 0.4 %; Eosinophils # 0.1 10^3/uL (0.0-0.8); Eosinophils % 2.9 %; Hematocrit 27.1 % (42.0-52.0); Hemoglobin 8.2 g/dL (11.7-16.6); Lymphocytes # 0.6 10^3/uL (0.8-4.8); Lymphocytes % 25.2 %; Mean Corpuscular HGB Conc 30.3 g/dL (30.0-36.0); Mean Corpuscular Hemoglobin 30.5 pg (28.0-34.0); Mean Corpuscular Volume 100.7 fL (80-94); Mean Platelet Volume 13.6 fL (7.4-10.4); Monocytes # 0.4 10^3/uL (0.2-0.9); Monocytes % 14.9 %; Neutrophils # 1.36 10^3/uL (1.8-7.7); Neutrophils % 56.2 %; Nucleated Red Blood Cells % 0 %; Platelet Count 41 10^3/cmm (130-400); Red Blood Count 2.69 10^6/uL (4.1-5.3); Red Cell Distribution Width 17.6 % (12.1-15.1); White Blood Count 2.4 10^3/uL (4.0-10.0)
[2021-02-11 05:46] LABS: Alanine Aminotransferase 12 U/L (0-41); Albumin Level 2.9 g/dL (3.5-5.2); Alkaline Phosphatase 50 IU/L (40-130); Anion Gap 11.2 (5-19); Aspartate Amino Transferase 32 U/L (0-40); Blood Urea Nitrogen 29 mg/dL (8-23); Calcium 8.9 mg/dL (8.5-10.5); Carbon Dioxide 28 mmol/L (22-29); Chloride 110 mmol/L (98-107); Globulin 3.1 g/dL (1.3-4.6); Glucose 138 mg/dL (65-115); Osmolality Calculated 308 mOsm/kg (285-295); Potassium 4.2 mmol/L (3.5-5.1); Sodium 145 mmol/L (136-145); Total Bilirubin 0.6 mg/dL (0.15-1.2)
[2021-02-11] MEDS: multivitamin therapeutic Tablet 1 TAB PO (08:04)
[2021-02-11] MEDS: folic acid 1 mg Tablet PO (08:04)
[2021-02-11] MEDS: pregabalin 75 mg Capsule PO ×2 (08:04→17:33)
[2021-02-11] MEDS: thiamine 100 mg Tablet PO (08:04)
[2021-02-11] MEDS: atorvastatin 40 mg Tablet 80 MG PO (08:04)
[2021-02-11] MEDS: pantoprazole 40 mg SDV IV ×2 (08:04→21:20)
[2021-02-11] MEDS: fenofibrate 145 mg Tablet PO (08:05)
[2021-02-11] MEDS: nicotine 21 mg Patch 1 PATCH TRANSDERMA (08:05)
--- NOTE | 2021-02-11 10:15 | PM.PN ---
Subjective Subjective: Interval history: Today he is doing much better. He is calm, collected, conversant. He is able to give me history from admitting hospitalization, including receiving 2 units of PBC transfusion, and even recalls receiving additional transfusion of platelets. He tells me his platelets have been low for a long time. This appears to be corroborated also by his sister Valorie Pride. He also now remembers some of the things he was seeing, and tries to correlate time as to what may have made him think they were what they were, like seeing patterns on a distant while in ICU and thinking that it was running water. He states now realizes that it is not. Vitals/I&O/Wt Last Vital Signs Temp 98.1 F 02/11/21 05:00 Pulse 153 H 02/11/21 09:46 Resp 17 02/11/21 09:46 BP 147/84 02/11/21 08:00 Pulse Ox 94 02/11/21 09:46 02/10/21 02/11/21 02/11/21 22:59 06:59 14:59 Intake Total 1231.25 / 2367.25 50 / 2417.25 320 / 320 Output Total 750 / 1500 800 / 2300 800 / 800 Balance 481.25 / 867.25 -750 / 117.25 -480 / -480 Weight last 48 hrs Weight 145.603 kg Weight 142.882 kg Physical Exam Const: COMMON NORMALS: no acute distress and alert NUTRITIONAL APPEARANCE: obese ORIENTATION/CONSCIOUSNESS: Yes awake OTHER: Much calmer. Cooperative. HENMT: COMMON NORMALS: oropharynx normal Neck/C-Spine: COMMON NORMALS: no JVD Resp: COMMON NORMALS: normal respiratory effort and clear to auscultation bilaterally AUSCULTATION: clear to auscultation bilaterally Cardio: COMMON NORMALS: no JVD, regular rhythm, S1 normal heart sound present, S2 normal heart sound present and No murmurs present (Cardio) RHYTHM: regular rhythm HEART SOUNDS: S1 normal heart sound present and S2 normal heart sound present GI: COMMON NORMALS: Normal to inspection, nondistended, normoactive bowel sounds present, Soft to palpation and non-tender PALPATION: Yes Soft to palpation Extremity: COMMON NORMALS: no joint enlargement GENERAL: Yes edema (2+ BL LE) Neuro: COMMON NORMALS: moves all extremities SENSORIUM/ORIENTATION: Yes alert Skin: COMMON NORMALS: no rashes or lesions noted GENERAL SKIN EXAM: no rashes or lesions noted Urinary Catheter Management^: Acharya: Cath Placed During This Visit: yes Reason for Continuing Indwelling Catheter: Accurate Measurement of Urinary Output in Critically Ill Patients Urinary Catheter Date of Insertion: 02/05/21 Urinary Catheter Time of Insertion: 22:31 Data : 02/11/21 04:25 02/11/21 04:25 Micro: Microbiology 02/10/21 11:25 C.difficile Toxin B Gene (PCR) - Final Stool - Stool Aspirate A&P Assessment and plan (1) Acute encephalopathy: Today he appears to be doing much better. He is not the best historian, but does now recall additional details from his hospitalization, he is able to tell me some of his underlying conditions, including reporting chronic issues with thrombocytopenia. Also realizes that some of the things he was seeing, always convinced that they were real, or not. Appears was having delirium, as discussed with him and his sister, possibly superimposed on chronic encephalopathy. Discussed with him and his sister may be more predisposed to episodes of delirium. Encouraged him to make sure to continue taking thiamine, folic acid long-term. We will move him up to general medical floor. Mobilize. Assessment will be obtained by PT and OT. Completed course of antibiotic for UTI, although culture unrevealing. Ammonia remains normal. Unremarkable CT head. TSH normal Discussed with psychiatry and his sister Valorie Pride. If continues to remain stable, medically no issues, and mobilizes independently, may return home within the next 1-2 days. Status: Acute (2) Hypovolemic shock: Shock resolved. Status: Acute (3) Pancytopenia: Platelets with further decline today, however, is also been receiving IV hydration, so this may be also delusional effect. DC IV fluid. Reports chronic issues with his platelets. Reassess counts again in the morning. Transfuse as necessary. If continues to decrease, consider discussing with hematology. Follow-up peripheral smear. Endoscopic evaluation had been deferred for now. Will need follow-up with hematology. Status: Acute (4) Melanotic stools: Hemoglobin counts overall without rapid decline. We will recheck tomorrow. As the bleeding has either resolved or has slowed down enough, hold additional antibiotic for now. Possible GI bleeding. With GI bleeding, underlying cirrhosis, continue empiric ceftriaxone. Continue PPI. Monitor hemoglobin, platelet level. Acute anemia. Endoscopic assessment deferred for now all until we have a better idea about his cognitive issues. Status: Acute (5) JILLIAN (acute kidney injury): Appears also entering diuretic phase of ATN. Polyuria appears improved. Monitor COLEMAN. Electrolytes. Encourage oral intake. Hold lisinopril. Hold diuretic. Status: Acute (6) UTI (urinary tract infection): Stop ceftriaxone. Culture unrevealing. Status: Acute Additional A&P Information Diarrhea: Resolved. Negative C. difficile. Attestations Medical Necessity Statement*: Continue admission for cyst management of acute encephalopathy, acute anemia, pancytopenia, mobilization, planning for discharge. 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
--- NOTE | 2021-02-11 14:10 | PC.NURSE ---
Pt received to room 278-1 from ICU. Pt alert and oriented. Pt able to transfer self to bed from W/C using walker. Pt had difficulty getting legs on bed by himself. No pain per pt. Pt oriented to room,call light and TV.
--- NOTE | 2021-02-11 15:27 | PM.NPN ---
Subjective NPU Subjective: Interval history: Fabiano presents today having been moved out of the ICU due to overall improvement. Clearly as staff has noted he has had some improvement in his mentation as he is able to identify the reason that he is in the hospital and what some of the issues are. He did not have a robust ability to have discord surrounding his UTI or GI bleed but he had a cursory understanding of some of the issues. He continues to have no comprehension about why he would go anywhere at home but does report that he has support on a regular basis from the standpoint of obtaining groceries and things of that nature. Mental Status Exam MSE Comments: This is an obese white male in a hospital gown with limited grooming and adequate eye contact with poor dentition. No abnormal movements except for psychomotor retardation. Cooperative with exam in no acute distress. Speech was decreased rate and volume. Mood described as pretty good, affect less subdued. Thought process organized. Thought content: Patient denied suicidal or homicidal ideation, there were no delusions reported or noted, he denied any auditory or visual hallucinations.. Attention and concentration was improving and memory seemed intact, but none were formally tested. He is alert and oriented x3. Insight and judgment are fair, impulse control is limited. Vitals/I&O/Wt Last Vital Signs Temp 97.0 F L 02/11/21 14:00 Pulse 83 02/11/21 14:00 Resp 18 02/11/21 14:00 BP 133/67 02/11/21 14:00 Pulse Ox 95 02/11/21 14:00 02/11/21 14:59 Intake Total 1960 / 1960 Output Total 2200 / 2200 Balance -240 / -240 Weight last 48 hrs Weight 145.603 kg Weight 142.882 kg Physical Exam Urinary Catheter Management^: Acharya: Cath Placed During This Visit: yes Reason for Continuing Indwelling Catheter: Accurate Measurement of Urinary Output in Critically Ill Patients Urinary Catheter Date of Insertion: 02/05/21 Urinary Catheter Time of Insertion: 22:31 Data NPU : 02/12/21 04:46 02/12/21 04:46 A&P Additional A&P Information (1) UTI (urinary tract infection): (2) Acute encephalopathy: (3) Hypovolemic shock: (4) JILLIAN (acute kidney injury): (5) Melanotic stools: (6) Pancytopenia: (7) Altered mental status: (8) History of alcohol abuse: Additional A&P Information This is a 31-year-old white male who presented for subacute medical issues with reports of hallucinations and confusion who presents currently seeming alert and oriented however seeming to have no understanding or insight of his medical condition and raising the question of capacity but definitely whether or not he would be other manage his medical condition independently at home. 1. Continue current medication. 2. Currently would have concerns about him managing his medical treatment at home but it is unclear whether he has capacity to make informed consent. 3. We will follow up tomorrow and see if his functioning has any improvement. 4. Need to investigate whether this altered mental status could be related to his alcohol history either through recent use of alcohol or a Warnicke's situation, or a response to hypokalemia and a urinary tract infection. 5. He clearly has improvement in mentation but it is not a robust understanding of the circumstance and and his condition but we will continue to follow. Attestations NPU Medical Necessity Statement*: N/A. Please see primary team note for medical necessity. 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
--- NOTE | 2021-02-11 18:12 | PC.NURSE ---
Shift summary: Pt transferred to [facility] after 1400 this afternoon. Pt has rested in bed with eyes closed all afternoon. No c/o of p ain or other distress noted. Pt eats well, able to feed self. He is OOB to restroom with walker and 2 assist.
--- NOTE | 2021-02-11 19:20 | PC.NURSE ---
Report given to BONNIE Cooley.
[2021-02-12] VITALS (7 sets, daily range): BP systolic 125–149; BP diastolic 57–87; PULSE 69–94; RESP 17–20; TEMP 36.4–37.1; O2SAT 92–98
[2021-02-12 05:08] LABS: Basophils % 0.5 %; Eosinophils # 0.1 10^3/uL (0.0-0.8); Eosinophils % 3.8 %; Hematocrit 27.9 % (42.0-52.0); Hemoglobin 8.6 g/dL (11.7-16.6); Lymphocytes # 0.6 10^3/uL (0.8-4.8); Mean Corpuscular HGB Conc 30.8 g/dL (30.0-36.0); Mean Corpuscular Hemoglobin 30.6 pg (28.0-34.0); Mean Corpuscular Volume 99.3 fL (80-94); Mean Platelet Volume 13.4 fL (7.4-10.4); Monocytes # 0.3 10^3/uL (0.2-0.9); Monocytes % 14.2 %; Neutrophils # 1.12 10^3/uL (1.8-7.7); Nucleated Red Blood Cells % 0 %; Platelet Count 44 10^3/cmm (130-400); Red Blood Count 2.81 10^6/uL (4.1-5.3); Red Cell Distribution Width 17.2 % (12.1-15.1); White Blood Count 2.1 10^3/uL (4.0-10.0)
[2021-02-12 05:32] LABS: Alanine Aminotransferase 16 U/L (0-41); Alkaline Phosphatase 49 IU/L (40-130); Aspartate Amino Transferase 37 U/L (0-40); Blood Urea Nitrogen 25 mg/dL (8-23); Calcium 8.7 mg/dL (8.5-10.5); Carbon Dioxide 28 mmol/L (22-29); Chloride 106 mmol/L (98-107); Globulin 3.1 g/dL (1.3-4.6); Glucose 121 mg/dL (65-115); Osmolality Calculated 300 mOsm/kg (285-295); Sodium 142 mmol/L (136-145); Total Bilirubin 0.7 mg/dL (0.15-1.2); Total Protein 6.1 g/dL (6.6-8.7)
[2021-02-12 05:46] LABS: Anion Gap 11.8 (5-19); Potassium 3.8 mmol/L (3.5-5.1)
[2021-02-12 06:17] LABS: Glucose Point of Care 123 mg/dL (70-110)
[2021-02-12] MEDS: pantoprazole 40 mg SDV IV ×2 (09:14→20:07)
[2021-02-12] MEDS: fenofibrate 145 mg Tablet PO (09:14)
[2021-02-12] MEDS: atorvastatin 40 mg Tablet 80 MG PO (09:15)
[2021-02-12] MEDS: folic acid 1 mg Tablet PO (09:15)
[2021-02-12] MEDS: thiamine 100 mg Tablet PO (09:15)
[2021-02-12] MEDS: pregabalin 75 mg Capsule PO ×2 (09:15→18:12)
[2021-02-12] MEDS: multivitamin therapeutic Tablet 1 TAB PO (09:15)
--- NOTE | 2021-02-12 09:22 | PC.SOCIAL ---
IMM Updated Updated pt on Pg 2 IMM. No questions voiced. Provided pt a copy. Signed, dated, & timed a copy & placed in chart.
--- NOTE | 2021-02-12 15:03 | P.PN_ITS ---
Subjective Subjective: Interval history: Patient was examined this morning, he sitting up in bed, wondering when he will get to go home, declines retirement placement, is alert to person, to place, to time, answers most questions appropriately, he does tell me that he is unsteady on his feet at times, but feels safe enough to go home, he has no particular complaints, I did discuss with him his liver cirrhosis, he says that the last time he drank was over 3 years ago, he has had a bone marrow biopsy in [facility] a few years ago as they were worried about his platelet count, but he tells me was negative for leukemia, currently denies fevers, no chills, no nausea, no vomiting Vitals/I&O/Wt Last Vital Signs Temp 98.8 F 02/12/21 10:50 Pulse 87 02/12/21 10:50 Resp 17 02/12/21 10:50 BP 147/87 02/12/21 10:50 Pulse Ox 98 02/12/21 10:50 02/12/21 02/12/21 02/12/21 06:59 14:59 22:59 Intake Total 200 / 2650 360 / 360 Balance 200 / 450 360 / 360 Weight last 48 hrs Weight 147.055 kg Weight 145.603 kg Physical Exam Const: COMMON NORMALS: no acute distress and patient oriented x3 HENMT: COMMON NORMALS: normocephalic HEAD & SCALP: normocephalic Neck/C-Spine: COMMON NORMALS: no JVD Resp: COMMON NORMALS: normal respiratory effort, No retractions, No use of accessory muscles and clear to auscultation bilaterally AUSCULTATION: clear to auscultation bilaterally Cardio: COMMON NORMALS: no JVD, regular rate, regular rhythm, S1 normal heart sound present and S2 normal heart sound present RATE: regular rate RHYTHM: regular rhythm HEART SOUNDS: S1 normal heart sound present and S2 normal heart sound present GI: COMMON NORMALS: Normal to inspection, nondistended, normoactive bowel sounds present, Soft to palpation, non-tender, No hepatosplenomegaly present, no masses and no bruits PALPATION: Yes Soft to palpation and Yes No hepatosplenomegaly present Extremity: COMMON NORMALS: capillary refill normal, no clubbing, cyanosis or edema, no calf tenderness and no pedal edema Neuro: COMMON NORMALS: patient oriented x3 Urinary Catheter Management^: Acharya: Cath Placed During This Visit: yes Reason for Continuing Indwelling Catheter: Accurate Measurement of Urinary Output in Critically Ill Patients Urinary Catheter Date of Insertion: 02/05/21 Urinary Catheter Time of Insertion: 22:31 Data : 02/12/21 04:46 02/12/21 04:46 A&P Assessment and plan (1) Acute encephalopathy: -Alert oriented x3, answers most questions appropriately -Will finish course of antibiotics -Ammonia levels within normal limits -CT head within normal limits -I cannot ascertain any confabulation -No episodes of delirium in the last 24 hours -No assistance as per physical therapy -Continue multivitamin, folic acid, thiamine Discussed with psychiatry and his sister Valorie Pride. If continues to remain stable, medically no issues, and mobilizes independently, may return home within the next 1-2 days. Status: Acute (2) Hypovolemic shock: Shock resolved. Status: Acute (3) Pancytopenia: -Likely secondary to chronic alcoholism, liver cirrhosis -He has had a bone marrow biopsy in the last few years, no evidence of leukemia according to patient -We will have patient follow-up with hematology oncology as outpatient -Hold allopurinol -Peripheral smear shows pancytopenia, no blasts Status: Acute (4) Melanotic stools: Hemoglobin counts overall without rapid decline Hemoglobin 8.6 today We will recheck tomorrow. As the bleeding has either resolved or has slowed down enough, hold additional antibiotic for now. Possible underlying slow GI bleed Continue PPI. Monitor hemoglobin, platelet level. Follow-up with general surgery as outpatient for consideration of EGD Status: Acute (5) JILILAN (acute kidney injury): Appears also entering diuretic phase of ATN. Polyuria appears improved. Monitor COLEMAN. Electrolytes. Encourage oral intake. Hold lisinopril. Hold diuretic. Status: Acute (6) UTI (urinary tract infection): Stop ceftriaxone. Culture unrevealing. Status: Acute Additional A&P Information Diarrhea: Resolved. Negative C. difficile. 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 Diagnoses Acute encephalopathy G93.40 Hypovolemic shock R57.1 Pancytopenia D61.818 Melanotic stools K92.1 JILLIAN (acute kidney injury) N17.9 UTI (urinary tract infection) N39.0
--- NOTE | 2021-02-12 15:55 | PC.CHAP ---
Pastoral Care Encounter/Spiritual Assessment Type of Contact [x] Declined furnace helper visit [] Patient/Family/Request visit [] Outpatient visit [] Follow-up visit [] Physician referral [] Code/Alert [] Routine visit [] Staff referral [] Actively dying [] Patient sleeping [] Family support [] [] Out of room [] Palliative care [] [] Receiving care in room [] Pre-surgical visit [] Trauma [] Long length of stay [] ICU visit [] Other: Relational/Emotional Strength [] Patient feels connected with others/family/visitors/staff [] Distress [] Loneliness/isolation [] Abandonment Spirituality of Patient [] Person of Cel[place] [] Attends Scientologist of their [place] [] Believes in Prayer [] Reads Bible or Muslim materials [] There are Spiritual issues to be addressed Carpet Inspector Interventions [] Prayer [] Active listening [] Non-anxious presence [] Spiritual/emotional support [] Crisis/trauma care [] Spiritual counseling [] Bereavement support [] Provided bereavement packet [] Provided Bible/devotional materials [] Provided toy/stuffed animal, coloring book to patient or family member [] Provided Communion [] Anointing/[place] [] Salvation [] Completed spiritual assessment [] Other: Impact on Illness or Injury [] Angry [] Fearful [] Anxious [] Often cries [] Exhaustion [] Unable to work [] Unable to attend restorationism [] Unable to walk/stand [] Unable to read [] Unable to drive [] Unable to eat/drink [] Unable to sleep [] Unable to be with family [] Patient intubated [] Other: Summarypreferred own printed circuit boards pinner Time spent with patient
--- NOTE | 2021-02-12 20:35 | PM.NPN ---
Subjective NPU Subjective: Interval history: Fabiano presents today continuing to show slow progress in his recovery from altered mental status. He is continuing to be able to endorse an understanding of what happened to include him having a bleed. It is his understanding that he is discharging tomorrow but he is also been recently thinking throughout the stay. We discussed the things that are important for him to do to stay safe while at home. He continues to endorse early family assistance and now suggest that he has been working with the primary team for some sort of home health services. Mental Status Exam MSE Comments: This is an obese white male in a hospital gown with limited grooming and adequate eye contact with poor dentition. No abnormal movements except for psychomotor retardation. Cooperative with exam in no acute distress. Speech was decreased rate and volume. Mood described as good, affect less subdued. Thought process organized. Thought content: Patient denied suicidal or homicidal ideation, there were no delusions reported or noted, he denied any auditory or visual hallucinations.. Attention and concentration was improving and memory seemed intact, but none were formally tested. He is alert and oriented x3. Insight and judgment are fair, impulse control is limited, but improving. Vitals/I&O/Wt Last Vital Signs Temp 97.6 F 02/12/21 19:14 Pulse 88 02/12/21 21:17 Resp 18 02/12/21 21:17 BP 143/63 02/12/21 19:14 Pulse Ox 93 02/12/21 21:17 02/12/21 02/12/21 02/13/21 14:59 22:59 06:59 Intake Total 360 / 360 300 / 660 Balance 360 / 360 300 / 660 Weight last 48 hrs Weight 147.055 kg Weight 145.603 kg Physical Exam Urinary Catheter Management^: Acharya: Cath Placed During This Visit: yes Reason for Continuing Indwelling Catheter: Accurate Measurement of Urinary Output in Critically Ill Patients Urinary Catheter Date of Insertion: 02/05/21 Urinary Catheter Time of Insertion: 22:31 Data NPU : 02/13/21 02:30 02/13/21 02:30 A&P Additional A&P Information (1) UTI (urinary tract infection): (2) Acute encephalopathy: (3) Hypovolemic shock: (4) JILLIAN (acute kidney injury): (5) Melanotic stools: (6) Pancytopenia: (7) Altered mental status: (8) History of alcohol abuse: Additional A&P Information This is a 31-year-old white male who presented for subacute medical issues with reports of hallucinations and confusion who presents currently seeming alert and oriented however seeming to have no understanding or insight of his medical condition and raising the question of capacity but definitely whether or not he would be other manage his medical condition independently at home. 1. Continue current medication. 2. Currently showing improvement in his inability to understand his circumstances suggesting that at least part of his mental status alteration had to do with the hypovolemia as well as UTI. Agree to home health services will be instrumental in maintaining him at home. 3. We will continue to follow. Attestations NPU Medical Necessity Statement*: N/A. Please see primary team note for medical necessity. Coding Level of Care Code Acute V/[place] Signal Officer for Jc Alaniz
[2021-02-13] VITALS: BP 131/60; PULSE 70; RESP 18; TEMP 36.6; O2SAT 93
[2021-02-13 03:37] LABS: Basophils % 0.5 %; Eosinophils # 0.1 10^3/uL (0.0-0.8); Eosinophils % 4.9 %; Hematocrit 26.1 % (42.0-52.0); Hemoglobin 8.1 g/dL (11.7-16.6); Lymphocytes # 0.6 10^3/uL (0.8-4.8); Lymphocytes % 30.8 %; Mean Corpuscular Hemoglobin 30.3 pg (28.0-34.0); Mean Corpuscular Volume 97.8 fL (80-94); Mean Platelet Volume 13.6 fL (7.4-10.4); Monocytes # 0.3 10^3/uL (0.2-0.9); Monocytes % 13.5 %; Neutrophils % 49.2 %; Nucleated Red Blood Cells % 0 %; Platelet Count 43 10^3/cmm (130-400); Red Blood Count 2.67 10^6/uL (4.1-5.3); Red Cell Distribution Width 16.9 % (12.1-15.1); White Blood Count 1.9 10^3/uL (4.0-10.0)
[2021-02-13 04:00] VITALS: BP 135/67; PULSE 76; RESP 18; TEMP 37; O2SAT 92
[2021-02-13 04:04] LABS: Neutrophils # 0.91 10^3/uL (1.8-7.7)
[2021-02-13 04:08] LABS: Slide Review Slide Review Perform
[2021-02-13 04:40] LABS: Alanine Aminotransferase 20 U/L (0-41); Albumin Level 3.3 g/dL (3.5-5.2); Alkaline Phosphatase 50 IU/L (40-130); Anion Gap 10.4 (5-19); Aspartate Amino Transferase 44 U/L (0-40); Blood Urea Nitrogen 22 mg/dL (8-23); Calcium 8.5 mg/dL (8.5-10.5); Carbon Dioxide 29 mmol/L (22-29); Chloride 106 mmol/L (98-107); Globulin 2.8 g/dL (1.3-4.6); Glucose 105 mg/dL (65-115); Osmolality Calculated 298 mOsm/kg (285-295); Potassium 3.4 mmol/L (3.5-5.1); Sodium 142 mmol/L (136-145); Total Bilirubin 0.6 mg/dL (0.15-1.2); Total Protein 6.1 g/dL (6.6-8.7)
[2021-02-13 04:42] LABS: Magnesium 1.7 mg/dL (1.7-2.3); Phosphorus 1.6 mg/dL (2.5-4.5)
[2021-02-13 07:14] VITALS: BP 123/52; PULSE 75; RESP 18; TEMP 36.4; O2SAT 93
[2021-02-13] MEDS: fenofibrate 145 mg Tablet PO (09:13)
[2021-02-13] MEDS: multivitamin therapeutic Tablet 1 TAB PO (09:13)
[2021-02-13] MEDS: atorvastatin 40 mg Tablet 80 MG PO (09:14)
[2021-02-13] MEDS: pantoprazole 40 mg SDV IV (09:14)
[2021-02-13] MEDS: thiamine 100 mg Tablet PO (09:14)
[2021-02-13] MEDS: pregabalin 75 mg Capsule PO (09:14)
[2021-02-13] MEDS: folic acid 1 mg Tablet PO (09:14)
--- NOTE | 2021-02-13 10:10 | US_ITS ---
WS: [id number] ULTRASOUND ABDOMEN LIMITED CLINICAL INFORMATION: ascites COMPARISON: None. FINDINGS: 4 quadrant ultrasound for ascites. No significant ascites. US/US abdomen limited [id number] IMPRESSION: No significant ascites
[2021-02-13 11:13] VITALS: BP 121/57; PULSE 58; RESP 16; TEMP 36.6; O2SAT 95
--- NOTE | 2021-02-13 12:58 | PM.DCS ---
Discharge Providers Date of Admission: 02/05/21 20:39 Date of Discharge: February 13, 2021 Attending Provider at Admission: Nick Mcbride MD Attending Provider at Discharge: Jensen Maravilla MD Primary Care Provider: Corey Lopze DO Diagnoses at Discharge Discharge Diagnosis (1) Acute encephalopathy: Status: Acute (2) Hypovolemic shock: Status: Acute (3) Pancytopenia: Status: Acute (4) Melanotic stools: Status: Acute (5) JILLIAN (acute kidney injury): Status: Acute (6) UTI (urinary tract infection): Status: Acute Reason for Visit Reason for Visit: WEIGHT GAIN Hospital Course Hospital Course This is a 71-year-old male with a past medical history of alcoholic liver cirrhosis, alcohol abuse in the past, type 2 diabetes, hypertension, who presents to [facility] due to concerns for EGD For patient's alcoholic liver cirrhosis, denies alcohol use in the last 2 years, was found to have splenomegaly, small volume ascites, not amenable to paracentesis, evidence of portal hypertension, pancytopenia, anasarca. INR 1.38, albumin 3.3, ammonia 43, creatinine 1.2. Patient will be discharged with a follow-up with gastroenterology at [facility]. I have discharged patient on folic acid, thiamine, multivitamin, advised to abstain from alcohol, acute hep panel pending on discharge. Patient had acute encephalopathy on admission, was monitored in the ICU, monitored with wa protocol, ammonia levels within normal limits, possibly he had evidence of UTI, finished Rocephin treatment as inpatient. Psychiatry was consulted. Mentation improved throughout hospitalization, 48 hours prior to discharge he remains alert oriented x3, ambulating without significant symptomatology answering all questions appropriate, discharged with home health care Patient had evidence of hypovolemic shock on admission, requiring fluid therapy, intermittent pressors, thought to be multifactorial related to anemia, hypovolemia. Patient remains normotensive 72 hours prior to discharge, afebrile, follow tick panel, follow blood cultures as outpatient. For patient's anemia, initial plans were on performing an EGD, however it was canceled due to patient's persistent confusion, hemoglobin remained stable, mentation improved, hemodynamics improved, no evidence of bloody or black stools or hemoptysis throughout his hospitalization, hemoglobin on discharge is 8.1. Patient was discharged on Protonix, Carafate, with close follow-up with general surgery for consideration of EGD as outpatient. For patient's thrombocytopenia, chronic in nature, likely related to liver cirrhosis, follow-up with Dr. Sahni as outpatient Patient had evidence of leukopenia throughout his hospitalization, developing some degree of absolute neutropenia, remained afebrile, urine cultures negative, C. difficile negative, all ultrasound of the abdomen with no clinically significant evidence of ascites that was amenable to paracentesis, blood cultures and tick panel and HIV and hepatitis panel are pending on discharge. Patient was discharged on 7 days of Levaquin, with close follow-up with Dr. Sahni as outpatient. Patient was advised if he were to have fevers, chills, cough, or lightheadedness dizziness go to the emergency room. Patient had JILLIAN during his hospitalization, on discharge I will continue to hold lisinopril and diuretic. Physical Exam Const: COMMON NORMALS: no acute distress and patient oriented x3 HENMT: COMMON NORMALS: normocephalic HEAD & SCALP: normocephalic Neck/C-Spine: COMMON NORMALS: no JVD Resp: COMMON NORMALS: normal respiratory effort, No retractions, No use of accessory muscles and clear to auscultation bilaterally AUSCULTATION: clear to auscultation bilaterally Cardio: COMMON NORMALS: no JVD, regular rate, regular rhythm, S1 normal heart sound present and S2 normal heart sound present RATE: regular rate RHYTHM: regular rhythm HEART SOUNDS: S1 normal heart sound present and S2 normal heart sound present GI: COMMON NORMALS: Normal to inspection, nondistended, normoactive bowel sounds present, Soft to palpation, non-tender, No hepatosplenomegaly present, no masses and no bruits PALPATION: Yes Soft to palpation and Yes No hepatosplenomegaly present Extremity: COMMON NORMALS: capillary refill normal, no clubbing, cyanosis or edema, no calf tenderness and no pedal edema Neuro: COMMON NORMALS: patient oriented x3 Psych: COMMON NORMALS: mental status grossly normal Urinary Catheter Management^: Acharya: Cath Placed During This Visit: yes Reason for Continuing Indwelling Catheter: Accurate Measurement of Urinary Output in Critically Ill Patients Urinary Catheter Date of Insertion: 02/05/21 Urinary Catheter Time of Insertion: 22:31 Discharge Data Data Completed and Pending: Completed Studies During Hospitalization Category Date Time Status CT abdomen pelvis wo con [id number] Urge nt Cat Scan 02/05/21 15:[address] head wo con* 7 0450 Routine Cat Scan 02/06/21 18:48 Completed CXRP [XR chest 1V portable [id number]] R outine Exams 02/06/21 17:19 Completed XR chest 1V floyd ble [id number] Stat Exams 02/05/21 18:45 Completed XR chest 1V floyd ble [id number] Urgent Exams 02/05/21 15:47 Completed US abdomen limite d [id number] Stat Ultrasound 02/13/21 10:10 Completed Pending at discharge Category Date Time Status Albumin Body Flui d Routine Lab 02/13/21 10:11 Ordered Amylase Body Flui d Routine Lab 02/13/21 10:11 Ordered Anaerobic Culture Routine Lab 02/13/21 10:11 Ordered Blood Culture Sta t Lab 02/13/21 12:40 Ordered Body Fluid Analys is Routine Lab 02/13/21 10:11 Ordered Body Fluid Cultur e & GS Routine Lab 02/13/21 10:11 Ordered Body Fluid Specif ic [place] Routine Lab 02/13/21 10:11 Ordered Cholesterol Body Fluid Routine Lab 02/13/21 10:11 Ordered Complete Blood Co unt w/Auto AM LABS Lab 02/14/21 04:00 Ordered Complete Blood Co unt w/Auto AM LABS Lab 02/15/21 04:00 Ordered Comprehensive Met abolic Panel AM LA BS Lab 02/14/21 04:00 Ordered Comprehensive Met abolic Panel AM LA BS Lab 02/15/21 04:00 Ordered Fluid Alkaline Ph os. Routine Lab 02/13/21 10:11 Ordered Glucose Body Flui d Routine Lab 02/13/21 10:11 Ordered LDH Body Fluid Ro utine Lab 02/13/21 10:11 Ordered Magnesium AM LABS Lab 02/14/21 04:00 Ordered Magnesium AM LABS Lab 02/15/21 04:00 Ordered Miscellaneous Brigida t Routine Lab 02/08/21 03:40 Received Miscellaneous Brigida t Routine Lab 02/08/21 03:40 Received Phosphorus AM LAB S Lab 02/14/21 04:00 Ordered Phosphorus AM LAB S Lab 02/15/21 04:00 Ordered Tick Panel Stat Lab 02/13/21 12:40 Ordered Total Protein Bod y Fluid Routine Lab 02/13/21 10:11 Ordered Triglycerides Bod y Fluid Routine Lab 02/13/21 10:11 Ordered Uric Acid Body Fl uid Routine Lab 02/13/21 10:11 Ordered pH Body Fluid Rou rosales Lab 02/13/21 10:11 Ordered Cytology [PTH] Ro utine Pth 02/13/21 10:11 Ordered Labs from last 24 hours 02/13/21 02/13/21 02/13/21 02:30 02:30 02:30 WBC 1.9 L RBC 2.67 L Hgb 8.1 L Hct 26.1 L MCV 97.8 H MCH 30.3 MCHC 31.0 RDW 16.9 H Plt Count 43 L MPV 13.6 H Neut % (Auto) 49.2 Lymph % (Auto) 30.8 [place] % (Auto) 13.5 Eos % (Auto) 4.9 Baso % (Auto) 0.5 Neut # (Auto) 0.91 L* Lymph # (Auto) 0.6 L [place] # (Auto) 0.3 Eos # (Auto) 0.1 Baso # (Auto) 0.0 Nucleated RBC % (a uto) 0 Nucleated RBCs # 0.0 Sodium 142 Potassium 3.4 L Chloride 106 Carbon Dioxide 29 Anion Gap 10.4 BUN 22 Creatinine 1.2 GFR Calculation Not Reportable Glucose 105 Calculated Osmolal ity 298 H Calcium 8.5 Phosphorus 1.6 L Magnesium 1.7 Total Bilirubin 0.6 AST 44 H ALT 20 Alkaline Phosphata se 50 Total Protein 6.1 L Albumin 3.3 L Globulin 2.8 Vitals: Last Vital Signs Temp 97.8 F 02/13/21 11:13 Pulse 58 L 02/13/21 11:13 Resp 16 02/13/21 11:13 BP 121/57 02/13/21 11:13 Pulse Ox 95 02/13/21 11:13 Discharge Plan Discharge Patient Disposition: Home Condition: Stable Prescriptions: New folic acid 1 mg Tablet 1 mg PO DAILY 30 Days Qty: 60 RF: 0 Vitamin B-1 (mononitrate) 100 mg Tablet 100 mg PO DAILY 30 Days Qty: 60 RF: 0 Thera 400 mcg Tablet 1 tab PO DAILY 30 Days Qty: 30 RF: 0 lactulose 20 gram/30 mL Solution 30 g PO BID Qty: 1500 RF: 0 levofloxacin 750 mg tablet 750 mg PO DAILY 7 Days Qty: 7 RF: 0 Protonix 40 mg tablet,delayed release (DR/EC) 40 mg PO BID 30 Days Qty: 60 RF: 0 Continued atorvastatin 80 mg tablet 80 mg PO DAILY RF: 0 isosorbide mononitrate 30 mg tablet extended release 24 hr 30 mg PO DAILY RF: 0 pioglitazone 45 mg tablet 45 mg PO DAILY RF: 0 famotidine 20 mg tablet 20 mg PO BID RF: 0 tamsulosin 0.4 mg capsule 0.4 mg PO DAILY RF: 0 nitroglycerin 0.4 mg tablet, sublingual 0.4 mg sublingual Q5MIN PRN (Reason: Chest Pain) RF: 0 pregabalin 75 mg capsule 75 mg PO QID RF: 0 fenofibrate nanocrystallized 145 mg tablet 145 mg PO DAILY RF: 0 WelChol 3.75 gram powder in packet 3.75 g PO DAILY RF: 0 Tylenol Extra Strength 500 mg Tablet 500 mg PO QID PRN (Reason: Pain) RF: 0 Changed aspirin 325 mg Tablet 81 mg PO DAILY Qty: 0 RF: 0 furosemide 40 mg tablet 40 mg PO DAILY Qty: 0 RF: 0 Held atenolol-chlorthalidone 50-25 mg tablet 1 tab PO BID RF: 0 Hold Instructions: Resume on 03/06/21. until you see primary care lisinopril 10 mg tablet 10 mg PO DAILY RF: 0 Hold Instructions: Resume on 03/06/21. hold until you see primary care Discontinued allopurinol 100 mg tablet 100 mg PO BID RF: 0 Discharge Orders: Discharge Order (Routine); Ordered 02/13/21 Ordered By: Jensen Maravilla Referrals: Corey Lopez DO [Primary Care Provider] - Davion Glasgow MD [Physician] - 1 month (egd for anemia) Justo Sahni MD [Hospitalist] - 4-7 days (pancytopenia) Discharge Diet: Cardiac Discharge Activity: Resume usual activity Patient Instructions: GI Discharge Instructions Activity Restrictions/Additional Instructions: -Follow-up with gastroenterology in 1 month -For your anemia, follow-up with general surgery in 1 month for consideration of EGD, continue Protonix 40 twice daily -For your pancytopenia, follow-up with Dr. Sahni in 1 week -Do not use allopurinol -Please take antibiotics for the next 7 days -If you have fevers, chills, worsening abdominal pain, cough go to the emergency room Discharge Attestations Time Spent in Discharge Care*: less than 30 min Quality Metrics Clinical Quality Measures During this hospital stay, did patient experience: None Coding Level of Care Code Acute Chg FW DC note Diagnoses Acute encephalopathy G93.40 Hypovolemic shock R57.1 Pancytopenia D61.818 Melanotic stools K92.1 JILLIAN (acute kidney injury) N17.9 UTI (urinary tract infection) N39.0
[2021-02-13 15:00] VITALS: BP 144/65; PULSE 84; RESP 17; TEMP 36.3; O2SAT 94
[2021-02-13 15:33] LABS: Hepatitis A Antibody IgM Non-Reactive (Nonreactive); Hepatitis B Core IgM Non-Reactive (Nonreactive); Hepatitis B Surface Antigen Non-Reactive (Nonreactive); Hepatitis C Virus Antibody Non-Reactive (Nonreactive)
[2021-02-13 15:37] LABS: HIV 1 & 2 Antibody Non-Reactive (Non-Reactiv); HIV 1 & 2 Antigen Non-Reactive (Non-Reactiv)
--- NOTE | 2021-02-13 17:32 | PC.NURSE ---
Late entry: 1540 Discharge instructions given to patient and sister. All questions answered. Central line removed, pressure dressing intact. Patient discharged in stable condition in the care of his sister.
[2021-02-13 17:34] VITALS: BP 144/65; PULSE 84; RESP 17; TEMP 36.3; O2SAT 94
[2021-02-14 10:18] LABS: Miscellaneous Test See Scanned Lab Rpt
[2021-02-14 11:56] LABS: Lyme AB Screen <0.90 index
[2021-02-16 16:57] LABS: E. Chaffeensis AB IGG <1:64; E. Chaffeensis AB IGM <1:20; RMSF IGG NOT DETECTED; RMSF IGM NOT DETECTED
== END 2021-02-13 15:40 | disposition home or self-care (01) | DRG 377 ==
LOC: ER 21:08 → ICU 22:13 → MEDSURG 02-11 14:09
PROVIDERS: Internal Medicine; Admitting Provider Internal Medicine; Emergency Provider Family Medicine; PCP Orthopaedic Surgery; Visit Provider Family Medicine
DX: K92.2 Gastrointestinal hemorrhage, unspecified (principal); R57.1 Hypovolemic shock; N17.0 Acute kidney failure with tubular necrosis; K76.6 Portal hypertension; D61.818 Other pancytopenia; J90 Pleural effusion, not elsewhere classified; Z68.41 Body mass index [BMI] 40.0-44.9, adult; N39.0 Urinary tract infection, site not specified; K92.1 Melena; K70.31 Alcoholic cirrhosis of liver with ascites; F10.11 Alcohol abuse, in remission; K59.00 Constipation, unspecified; I95.9 Hypotension, unspecified; D64.9 Anemia, unspecified; R16.1 Splenomegaly, not elsewhere classified; E11.9 Type 2 diabetes mellitus without complications; F17.210 Nicotine dependence, cigarettes, uncomplicated; E87.5 Hyperkalemia; K72.90 Hepatic failure, unspecified without coma; K71.3 Toxic liver disease with chronic persistent hepatitis; E66.01 Morbid (severe) obesity due to excess calories; D70.9 Neutropenia, unspecified; R19.7 Diarrhea, unspecified; D69.59 Other secondary thrombocytopenia
CPT/HCPCS: 36415; 36416; 36430; 36556; 36592; 36600; 51702; 70450; 71045; 74176; 76705; 80048; 80051; 80053; 80074; 80500; 81001; 82140; 82330; 82550; 82803; 82805; 82962; 83605; 83690; 83735; 83880; 84100; 84443; 85014; 85018; 85025; 85610; 86618; 86666; 86757; 86850; 86900; 86920; 87040; 87086; 87493; 87806; 88184; 88185; 93005; 96365; 96372; 96375; 97110; 97116; 97161; 97165; 97530; 97535; 99291; C1751; C9113; J0610; J0696; J1630; J2060; J7030; J7799; P9016; P9037; P9040

== ENCOUNTER 2021-03-29 12:33 | Outpatient (CLI) | payer MEDICARE, MEDICAID, SELFPAY ==
[2021-03-29 15:03] LABS: Basophils % 0.4 %; Eosinophils # 0.1 10^3/uL (0.0-0.8); Hematocrit 29.6 % (42.0-52.0); Lymphocytes # 0.7 10^3/uL (0.8-4.8); Lymphocytes % 28.2 %; Mean Corpuscular HGB Conc 30.4 g/dL (30.0-36.0); Mean Corpuscular Volume 91.9 fL (80-94); Mean Platelet Volume 12.6 fL (7.4-10.4); Monocytes # 0.3 10^3/uL (0.2-0.9); Monocytes % 12.7 %; Neutrophils # 1.42 10^3/uL (1.8-7.7); Neutrophils % 56.3 %; Nucleated Red Blood Cells % 0 %; Platelet Count 68 10^3/cmm (130-400); Red Blood Count 3.22 10^6/uL (4.1-5.3); Red Cell Distribution Width 17.5 % (12.1-15.1); Reticulocyte % 2.7 % (0.5-2.0); White Blood Count 2.5 10^3/uL (4.0-10.0)
[2021-03-29 15:32] LABS: LAB Peripheral Smear Sent for Review
[2021-03-29 16:00] LABS: Vitamin B12 295 pg/mL (232-1245)
[2021-03-29 16:20] LABS: Erythrocyte Sedimentation Rate 54 mm/hr (0-10)
[2021-03-29 16:47] LABS: Alanine Aminotransferase 12 U/L (0-41); Albumin Level 4.1 g/dL (3.5-5.2); Alkaline Phosphatase 69 IU/L (40-130); Anion Gap 17.7 (5-19); Aspartate Amino Transferase 26 U/L (0-40); Blood Urea Nitrogen 18 mg/dL (8-23); Carbon Dioxide 29 mmol/L (22-29); Chloride 100 mmol/L (98-107); Ferritin 47 ng/mL (30-400); Globulin 3.2 g/dL (1.3-4.6); Glucose 176 mg/dL (65-115); Iron 107 ug/dL (59-158); Lactate Dehydrogenase 227 U/L (135-225); Osmolality Calculated 302 mOsm/kg (285-295); Percent Saturation 20.9 % (20-50); Potassium 3.7 mmol/L (3.5-5.1); Sodium 143 mmol/L (136-145); Total Bilirubin 0.5 mg/dL (0.15-1.2); Total Iron Binding Capacity 510 mcg/dl; Total Protein 7.3 g/dL (6.6-8.7); Unsaturated Iron Binding 403 ug/dL (112-347)
--- NOTE | 2021-03-29 17:03 | ONC CON_ITS ---
Dr. Sahni New Patient Note Patient: Fabiano Young Unit #: [id number]: 1950 Dicatated By: Justo Sahni M.D.Date of Visit: March 29, 2021 Onc MED New Patient/Consult Referring Physician: Jensen Maravilla Chief Complaint: Pancytopenia. History of Present Illness: This is a 71-year-old man with moderately severe pancytopenia. This patient is a poor historian and at the present time I have limited records available. On 02/05/2021 he was admitted to the hospital after presenting to the emergency room with weakness and lethargy. He had a known history of cirrhosis of the liver, presumed to be alcohol induced. He was significantly pancytopenic with hemoglobin 7.2 g, white blood cell count 2500, and platelet count 34,000. His red cell indices were mildly macrocytic. He was reported to have melanotic stools. He had acute renal failure with BUN 118 and creatinine 5.7 mg/dL. There was associated hyperkalemia with his potassium level elevated at 6.1 mmol/L. His abdominal CT scan did show evidence of cirrhosis of the liver with associated splenomegaly. There was evidence of portal venous hypertension and a small volume of intraperitoneal ascites. There was moderate prostatic hypertrophy and there was evidence of degenerative disease of the spine. He had significant metabolic encephalopathy/confusion. He was given empiric antibiotic therapy and other supportive measures, and he did show gradual improvement in his clinical status. He was able to be discharged home on 02/13/2021. His CBC at that time showed hemoglobin stable at 8.1 g with white blood cell count 1900 and platelet count 68,000. He is seen now in regard to the pancytopenia. He indicates that he was previously evaluated in [place] by Dr. Fuller during admission at [facility], and at that time he did have a bone marrow aspiration/biopsy. He has no recollection of the findings. He has very limited activity, doing part to lack of energy and also to his back pain. He is able to ambulate with a walker. His ECOG score is 2. His appetite has not been very good, but he says it is picking up. His weight is down about 25 pounds. He does not have fever or night sweats. He has sinus drainage and he occasionally has sore throat. He also has some cough, but not very much. He does not complain of shortness of breath. He was having chest pain, but that is better now. He is not having nausea. His acid reflux is adequately managed with medication. Recently he has had constipation. He previously had diarrhea in association with lactulose, and from that I suspect he may have been getting treatment for hepatic encephalopathy. He also is having problems with bladder function, but that is better now also. He is having significant pain in his low back between his hips. The pain radiates down the left leg, sometimes to the bottom of his left foot. He has a little bit of headache. He has problems with balance. He has some numbness in the ulnar distribution of the right hand. He has no other focal neurologic symptoms. He has not been aware of any abnormal bruising or other bleeding manifestations. Past Medical History: His medical history includes cirrhosis of the liver with portal hypertenison, coronary artery disease, gastroesophageal reflux disease, glaucoma, hypertension, and type II diabetes. He has a history of alcohol abuse. Past Surgical History: His surgical/procedural history includes bone marrow aspiration/biopsy, EGD and colonoscopy., tonsillectomy, vasectomy, and coronary angioplasty/stent placement in 2003. Medications: Aspirin 81 1 (81 mg) Tablet, chewable Oral daily, Atenolol-Chlorthalidone 1 (50-25 mg) Tablet Oral b.i.d., Atorvastatin Calcium 1 (80 mg) Tablet Oral daily, Famotidine 1 (20 mg) Tablet Oral b.i.d., Folic Acid 1 (1 mg) Tablet Oral daily, Isosorbide Mononitrate ER 1 (30 mg) Tablet SR 24 HR Oral daily, Welchol 1 (3.75 g) Pack Oral daily Allergies: No Known Allergies. Social History: Mr. Young is . He has a history of smoking 1 to 1-1/2 packs of cigarettes daily. He quit during his recent hospitalization. He has had heavy alcohol use in the past. He claims to have quit sometime in the 1980s, though it appears to be unlikely. Family History: His father had heart disease and kidney failure. His mother with leukemia at age 57. A sister at age 63 with sepsis from urinary tract infection. Two other siblings have diabetes. Review Of Symptoms: Constitutional - He has very limited activity due to poor energy and to back pain. He is able to ambulate with a walker. His appetite was poor, but it is picking up now. His weight is down about 25 pounds. He does not have fever or night sweats. ECOG score is 2, Eyes - He has glaucoma, ENMT - He has some hearing loss. He has sinus congestion/drainage and he sometimes has sore throat with it. He has no difficulty swallowing, Hematologic/Lymphatic - No abnormal bruising or bleeding. He has had low blood counts before this, and he did have a bone marrow biopsy done by Dr. Fuller in [place], Respiratory - No shortness of breath. He has cough, but not very much. No pleuritic pain or hemoptysis, Cardiovascular - He was having chest pain, but that is better now. No palpitations, Gastrointestinal - No nausea or vomiting. His acid reflux is adequately managed with medication. Recently he has had constipation. He had previously been prescribed lactulose, which apparently caused diarrhea. He has not been aware of any blood in the stool, Genitourinary (M) - He was having difficulty voiding but his bladder function is better now, Musculoskeletal - He has pain in his back in between his hips and the pain radiates down the left leg. It sometimes goes to the bottom of his left foot, Integumentary - No skin rash, Neurologic - He has had a little bit of headache. He has poor balance. He has numbness in the ulnar distribution of the right hand. No other focal neurologic symptoms, Psychiatric - No anxiety or depression. No insomnia. Vital Signs: Performed on March 29, 2021 13:13: 2, 0, 0.00, 0.00 sq.m, 98 %, 89 /min, 16 /min, 153/79 mm(hg) (HIGH), 97.3 F (LOW), and 275.2 lbs (HIGH). Physical Examination: Constitutional - He appears chronically ill, Eyes - Sclerae nonicteric. Conjunctivae clear, ENMT - No lesions noted in the oral cavity, Neck - No mass or thyromegaly, Hematologic/Lymphatic - No cervical, clavicular, or axillary adenopathy, Respiratory - Lungs are clear with diminished air movement bilaterally, Cardiovascular - Heart rhythm appears to be regular with frequent premature beats. There is no murmur, gallop, or rub noted, Abdomen - Soft. Liver is not enlarged. I am not able to palpate the spleen. There is no abdominal mass or ascites noted and there is no inguinal adenopathy, Back/Spine - No spine or CVA tenderness noted, Extremities - There are venous stasis changes bilaterally. There is mild edema which appears chronic as there is associated induration. I am not able to palpate pedal pulses, Integumentary - No rashes. No suspicious skin lesions noted, Neurologic - No focal neurologic deficits noted. Problem List: 1. Moderately severe pancytopenia. The cause is not entirely certain. Some component is almost certainly due to hypersplenism, but I suspect there are additional contributing factors. These may include GI blood loss and possibly bone marrow suppression from alcohol, though he denies any recent alcohol use. 2. He has cirrhosis of the liver with portal hypertension, presumed to be alcohol related. 3. Hypertension. 4. Type 2 diabetes. 5. Coronary artery disease with previous angioplasty/stent placement. 6. GERD. 7. Degenerative disease of the spine. 8. Glaucoma. Problems Addressed with this Encounter and Plan: Patient with moderately severe pancytopenia. The cause is not entirely certain. He has cirrhosis of the liver with portal hypertension, presumed to be alcohol related, and some component of the pancytopenia is almost certainly due to hypersplenism, but I suspect there are additional contributing factors. These may include GI blood loss and possibly bone marrow suppression from alcohol, though he denies any recent alcohol use. He has had a previous bone marrow aspiration/biopsy, which may help to clarify things, and I will request those records from Dr. Fuller. In the meantime, I will obtain additional laboratory studies today to include CBC, comprehensive metabolic profile, sed rate, reticulocyte count, LDH level, haptoglobin level, B12 and folate levels, serum iron studies and ferritin, protein electrophoresis and serum free light chain assay. I will review the blood smear. He will have further evaluation as indicated. Signed By: Justo Sahni M.D. <<Signature on File>>
[2021-03-29 17:12] LABS: Folate Level > 20.0 ng/mL (4.5-32.2)
[2021-03-30 06:57] LABS: PROTEIN, TOTAL 7.1 g/dL (6.1-8.1)
[2021-03-30 15:18] LABS: ALBUMIN 3.8 g/dL (3.8-4.8); ALPHA 1 GLOBULIN 0.3 g/dL (0.2-0.3); ALPHA 2 GLOBULIN 0.8 g/dL (0.5-0.9); BETA 1 GLOBULIN 0.6 g/dL (0.4-0.6); BETA 2 GLOBULIN 0.4 g/dL (0.2-0.5); GAMMA GLOBULIN 1.2 g/dL (0.8-1.7); KAPPA LIGHT CHAIN, FREE, SERUM 57.8 mg/L (3.3-19.4); KAPPA/LAMBDA LIGHT CHAINS FREE 1.75 (0.26-1.65); LAMBDA LIGHT CHAIN, FREE, SERU 33.1 mg/L (5.7-26.3)
== END 2021-03-29 12:34 | disposition home or self-care (01) ==
LOC: ONCMED 12:40
PROVIDERS: PCP Orthopaedic Surgery; Visit Provider Internal Medicine Medical Oncology
DX: D61.818 Other pancytopenia (principal); K74.60 Unspecified cirrhosis of liver; K76.6 Portal hypertension; E11.59 Type 2 diabetes mellitus with other circulatory complications; I25.10 Atherosclerotic heart disease of native coronary artery without angina pectoris; K21.9 Gastro-esophageal reflux disease without esophagitis; M47.9 Spondylosis, unspecified; H40.9 Unspecified glaucoma; Z79.899 Other long term (current) drug therapy; I10 Essential (primary) hypertension
CPT/HCPCS: 36415; 80053; 82607; 82728; 82746; 83010; 83540; 83550; 83615; 83883; 84155; 84165; 85025; 85045; 85651; 86850; 86900; 99205